=== PATIENT | female | born 1975 | race Two or more races ===

== ENCOUNTER 2017-01-05 17:22 | Observation (INO) | payer OTHER ==
[~2017-01-05] VITALS: Ht 160 cm; Wt 56.7 kg
[2017-01-05 18:12] LABS: Basophils # (auto) 0 uL; Basophils % (auto) 0.7 % (0.0-2.0); Eosinophils # (auto) 0.1 uL; Eosinophils % (auto) 1.8 % (0.0-7.0); Hematocrit 38.5 % (36.0-46.0); Hemoglobin 13.3 g/dL (12.2-16.2); Lymphocytes # (auto) 0.9 uL; Lymphocytes % (auto) 20.6 % (10.0-50.0); Mean Corpuscular Hemoglobin 35.3 pg (28.0-32.0); Mean Corpuscular Hgb Conc. 34.6 g/dL (32.0-36.0); Mean Corpuscular Volume 102.1 fL (80.0-100.0); Monocytes # (auto) 0.8 uL; Monocytes % (auto) 17.6 % (0.0-12.0); Neutrophils # (auto) 2.7 uL; Neutrophils % (auto) 59.3 % (37.0-80.0); Nucleated Red Blood Cells % 0.1 %; Platelet Count (auto) 144 10^3/uL (140-450); Red Blood Cells 3.77 10^6/uL (4.0-5.20); Red Cell Distribution Width 15.9 % (11.8-14.3); White Blood Cell 4.6 10^3/uL (4.4-10.8)
[2017-01-05 18:31] LABS: Albumin 2.7 g/dL (3.4-5.0); BUN/Creatinine Ratio 20.4; Bilirubin, Total 1.3 mg/dL (0.2-1.0); Calcium 8.7 mg/dL (8.5-10.1); Potassium 4.3 mmol/L (3.5-5.1); Total Protein 7.5 g/dL (6.4-8.2)
[2017-01-06 10:30] LABS: INR 1.11 (0.9-1.15); Partial Thromboplastin Time 34.1 sec (22.64-33.71); Prothrombin Time 12.1 sec (9.37-12.3)
[2017-01-06 12:03] LABS: Urine Bacteria FEW /hpf (None Seen); Urine Blood Negative /uL (Negative); Urine Hyaline Cast MOD /lpf (0 - 2); Urine Mucus FEW (None Seen); Urine Specific Gravity 1.022 (1.001-1.035); Urine WBC 4 /hpf (0 - 5)
[2017-01-06 14:12] VITALS: BP 111/58
== END 2017-01-06 14:20 | disposition home or self-care (01) | DRG 280 ==
LOC: ER 17:27 → OVERFLOW 17:28 → ER 01-06 14:20
PROVIDERS: ADMIT Emergency Medicine; ATTEND Emergency Medicine
DX: K70.31 Alcoholic cirrhosis of liver with ascites (principal)
CPT/HCPCS: 36415; 76700; 76942; 80053; 81001; 85025; 85610; 85730; 99285; G0378

== ENCOUNTER 2017-01-23 08:31 | Emergency (ER) | payer OTHER ==
[~2017-01-23] VITALS: Ht 160 cm; Wt 61.2 kg
[2017-01-23 09:26] LABS: Eosinophils # (auto) 0 uL; Mean Platelet Volume 9.3 fL (6.9-10.8); Monocytes # (auto) 0.4 uL; Nucleated Red Blood Cells % 0.1 %
[2017-01-23 09:29] LABS: Basophils # (auto) 0 uL; Basophils % (auto) 0.6 % (0.0-2.0); Eosinophils % (auto) 0.6 % (0.0-7.0); Hemoglobin 13.6 g/dL (12.2-16.2); Lymphocytes # (auto) 1.2 uL; Lymphocytes % (auto) 19.3 % (10.0-50.0); Mean Corpuscular Hemoglobin 35.9 pg (28.0-32.0); Mean Corpuscular Hgb Conc. 34.9 g/dL (32.0-36.0); Mean Corpuscular Volume 102.8 fL (80.0-100.0); Monocytes % (auto) 6.9 % (0.0-12.0); Neutrophils # (auto) 4.3 uL; Neutrophils % (auto) 72.6 % (37.0-80.0); Platelet Count (auto) 142 10^3/uL (140-450); Red Cell Distribution Width 15.5 % (11.8-14.3)
[2017-01-23 09:30] LABS: Albumin 2.5 g/dL (3.4-5.0); Anion Gap 8 (5-15); Aspartate Aminotransferase 31 U/L (15-37); BUN/Creatinine Ratio 22.2; Blood Urea Nitrogen 28 mg/dL (7-18); Calcium 9.2 mg/dL (8.5-10.1); Carbon Dioxide 24 mmol/L (21-32); Chloride 106 mmol/L (98-107); GFR African American 59 mL/min; GFR Non-African American 49 mL/min; Glucose 119 mg/dL (74-106); Magnesium 2.3 mg/dL (1.6-2.6); Potassium 4.4 mmol/L (3.5-5.1); Sodium 138 mmol/L (136-145)
[2017-01-23 09:35] LABS: Alkaline Phosphatase 89 U/L (45-117); Bilirubin, Total 1.5 mg/dL (0.2-1.0); Total Protein 6.8 g/dL (6.4-8.2)
[2017-01-23 10:51] LABS: INR 1.1 (0.9-1.15)
[2017-01-23] MEDS ORDERED: ONDANSETRON HCL 4 MG/2 ML VIAL IV PRN (12:15)
[2017-01-23] MEDS ORDERED: HYDROcodone-ACET 5/325MG TAB PO PRN (12:15)
[2017-01-23 12:20] LABS: Urine RBC None Seen /hpf (0 - 4)
[2017-01-23] MEDS ORDERED: RIFAXIMIN 550 MG TAB PO ONE (12:30)
[2017-01-23 12:34] LABS: Urine Bilirubin Negative (Negative); Urine Blood Negative /uL (Negative); Urine Color Yellow (Yellow); Urine Glucose Normal (Normal); Urine Ketone Negative (Negative); Urine Nitrite Negative (Negative); Urine Urobilinogen Normal (Negative)
[2017-01-23 12:44] VITALS: BP 111/66
[2017-01-23 15:31] LABS: Temperature: 22.8 C (20.0-25.0)
[2017-01-23] MEDS ORDERED: LACTULOSE 20Gm/30ML SOLN PO SCH (18:00)
[2017-01-23] MEDS ORDERED: RIFAXIMIN 550 MG TAB PO SCH (22:00)
== END 2017-01-23 14:47 | disposition home or self-care (01) ==
LOC: EDBD 08:31 → ER 08:31
DX: K70.31 Alcoholic cirrhosis of liver with ascites (principal); Z88.0 Allergy status to penicillin
CPT/HCPCS: 10030; 36415; 51702; 70450; 71010; 76700; 76942; 80053; 80074; 80320; 81001; 82140; 82607; 82746; 83605; 83735; 84484; 84702; 85025; 85610; 87040; 93005; 99285; C1729; J7030

== ENCOUNTER 2017-02-09 11:13 | Emergency (ER) | payer OTHER ==
[~2017-02-09] VITALS: Ht 160 cm; Wt 59.0 kg
[2017-02-09 11:50] LABS: Eosinophils # (auto) 0.1 uL; Monocytes # (auto) 0.4 uL; Monocytes % (auto) 7.6 % (0.0-12.0); Neutrophils # (auto) 3.5 uL; Nucleated Red Blood Cells % 0.1 %
[2017-02-09 11:52] LABS: Basophils # (auto) 0.1 uL; Eosinophils % (auto) 1.4 % (0.0-7.0); Hematocrit 41.3 % (36.0-46.0); Lymphocytes # (auto) 1.5 uL; Lymphocytes % (auto) 26.9 % (10.0-50.0); Mean Corpuscular Hemoglobin 34.5 pg (28.0-32.0); Mean Corpuscular Hgb Conc. 33.9 g/dL (32.0-36.0); Mean Corpuscular Volume 101.8 fL (80.0-100.0); Mean Platelet Volume 9.3 fL (6.9-10.8); Neutrophils % (auto) 63.1 % (37.0-80.0); Platelet Count (auto) 162 10^3/uL (140-450); Red Cell Distribution Width 16.2 % (11.8-14.3); White Blood Cell 5.5 10^3/uL (4.4-10.8)
[2017-02-09 12:13] LABS: Albumin 2.9 g/dL (3.4-5.0); Alkaline Phosphatase 91 U/L (45-117); Anion Gap 9 (5-15); Aspartate Aminotransferase 31 U/L (15-37); BUN/Creatinine Ratio 22.9; Bilirubin, Total 1.9 mg/dL (0.2-1.0); Blood Urea Nitrogen 25 mg/dL (7-18); Calcium 9.1 mg/dL (8.5-10.1); Carbon Dioxide 25 mmol/L (21-32); Chloride 102 mmol/L (98-107); GFR African American 70 mL/min; GFR Non-African American 58 mL/min; Glucose 110 mg/dL (74-106); Potassium 4.2 mmol/L (3.5-5.1); Sodium 136 mmol/L (136-145); Total Protein 7.9 g/dL (6.4-8.2)
[2017-02-09] MEDS ORDERED: PANTOPRAZOLE 40 MG/10 ML VIAL IV ONE (12:15)
[2017-02-09] MEDS ORDERED: ONDANSETRON HCL 4 MG/2 ML VIAL IV ONE (12:15)
[2017-02-09] MEDS ORDERED: MORPHINE SULF INJ 2 MG/ML SYRINGE 1ML IV ONE (12:15)
[2017-02-09] MEDS ORDERED: LACTULOSE 20Gm/30ML SOLN PO ONE (12:15)
[2017-02-09] MEDS ORDERED: SODIUM CHLORIDE 0.9% 1,000 ML IV ONE (12:15)
[2017-02-09 14:30] VITALS: BP 95/58
[2017-02-09 15:57] LABS: Urine Bilirubin Negative (Negative); Urine Blood Negative /uL (Negative); Urine Color Yellow (Yellow); Urine Glucose Normal (Normal); Urine Ketone Negative (Negative); Urine Mucus FEW (None Seen); Urine Nitrite Negative (Negative); Urine RBC <1 /hpf (0 - 4); Urine Squamous Epithelial Cell FEW /hpf (<5)
== END 2017-02-09 16:41 | disposition home or self-care (01) ==
LOC: ER 11:13
DX: R18.8 Other ascites (principal); K74.60 Unspecified cirrhosis of liver; Z88.0 Allergy status to penicillin
CPT/HCPCS: 36415; 74176; 80053; 81001; 82140; 84484; 84702; 85025; 96361; 96374; 96375; 99285; C9113; J2270; J2405; J7030

== ENCOUNTER 2017-02-16 11:27 | Emergency (ER) | payer OTHER ==
[~2017-02-16] VITALS: Ht 160 cm; Wt 56.7 kg
[2017-02-16] MEDS ORDERED: ONDANSETRON HCL 4 MG/2 ML VIAL IV ONE (12:30)
[2017-02-16] MEDS ORDERED: MORPHINE SULF INJ 2 MG/ML SYRINGE 1ML IV ONE (12:30)
[2017-02-16 12:47] VITALS: BP 100/57
[2017-02-16 12:51] LABS: Basophils # (auto) 0 uL; Basophils % (auto) 0.7 % (0.0-2.0); Eosinophils # (auto) 0.1 uL; Eosinophils % (auto) 1.4 % (0.0-7.0); Hematocrit 39.1 % (36.0-46.0); Hemoglobin 13.3 g/dL (12.2-16.2); Lymphocytes # (auto) 1.4 uL; Mean Corpuscular Hemoglobin 34.7 pg (28.0-32.0); Mean Corpuscular Volume 102.2 fL (80.0-100.0); Mean Platelet Volume 9.7 fL (6.9-10.8); Monocytes # (auto) 0.4 uL; Monocytes % (auto) 8.3 % (0.0-12.0); Neutrophils # (auto) 3.1 uL; Neutrophils % (auto) 61.6 % (37.0-80.0); Nucleated Red Blood Cells % 0.1 %; Platelet Count (auto) 135 10^3/uL (140-450); Red Cell Distribution Width 16.1 % (11.8-14.3)
[2017-02-16 13:09] LABS: Albumin 2.6 g/dL (3.4-5.0); BUN/Creatinine Ratio 20.7; Bilirubin, Total 1.3 mg/dL (0.2-1.0); Calcium 8.7 mg/dL (8.5-10.1); Potassium 4.5 mmol/L (3.5-5.1)
[2017-02-16] MEDS ORDERED: LORazepam 0.5 MG TAB PO PRN (13:45)
[2017-02-16] MEDS ORDERED: MORPHINE SULF INJ 2 MG/ML SYRINGE 1ML IV PRN ×3 (13:45)
[2017-02-16] MEDS ORDERED: PROMETHAZINE HCL 25 MG/ML 1ML IV PRN (13:45)
[2017-02-16] MEDS ORDERED: NITROGLYCERIN 0.4 MG SL TAB SL PRN (13:45)
[2017-02-16] MEDS ORDERED: SPIRONOLACTONE 25 MG TAB PO ONE (13:45)
[2017-02-16] MEDS ORDERED: TEMAZEPAM 15 MG CAP PO PRN (13:45)
[2017-02-16 14:32] LABS: INR 1.06 (0.9-1.15); Partial Thromboplastin Time 30.7 sec (22.64-33.71); Prothrombin Time 11.6 sec (9.37-12.3)
[2017-02-16 16:21] LABS: Urine Bilirubin Negative (Negative); Urine Blood Negative /uL (Negative); Urine Color Yellow (Yellow); Urine Glucose Normal (Normal); Urine Ketone Negative (Negative); Urine Mucus FEW (None Seen); Urine Nitrite Negative (Negative); Urine RBC 1 /hpf (0 - 4); Urine Squamous Epithelial Cell FEW /hpf (<5); Urine Urobilinogen Normal (Negative); Urine pH 5.5 (5.0-8.0)
[2017-02-16] MEDS ORDERED: KETOROLAC TROMETH 30 MG/ML 1ML VIAL IV ONE (16:45)
[2017-02-16] MEDS ORDERED: SPIRONOLACTONE 25 MG TAB PO SCH (18:00)
[2017-02-16] MEDS ORDERED: metroNIDAZOLE 500MG/100ML 100 ML IV SCH (18:00)
[2017-02-16] MEDS ORDERED: FUROSEMIDE 40 MG/4 ML VIAL IV SCH (22:00)
[2017-02-17] MEDS ORDERED: PANTOPRAZOLE 40 MG TAB PO SCH (10:00)
== END 2017-02-16 17:05 | disposition home or self-care (01) ==
LOC: ER 11:27
DX: R18.8 Other ascites (principal); K74.60 Unspecified cirrhosis of liver
CPT/HCPCS: 36415; 49083; 71010; 74176; 76942; 80053; 81001; 85025; 85610; 85730; 96374; 96375; 99291; C1729; J1885; J2270; J2405

== ENCOUNTER 2017-02-18 05:11 | Emergency (ER) | payer OTHER ==
[~2017-02-18] VITALS: Ht 162.6 cm; Wt 56.7 kg
[2017-02-18] MEDS ORDERED: SODIUM CHLORIDE 0.9% 1,000 ML IV ONE (07:25)
[2017-02-18] MEDS ORDERED: KETOROLAC TROMETH 30 MG/ML 1ML VIAL IV ONE (07:30)
[2017-02-18] MEDS ORDERED: METOCLOPRAMIDE HCL 5MG/ml INJ 2ml VIAL IV ONE (07:30)
[2017-02-18 08:22] LABS: Basophils # (auto) 0 uL; Eosinophils # (auto) 0 uL; Hematocrit 40.7 % (36.0-46.0); Monocytes # (auto) 0.7 uL
[2017-02-18 08:24] LABS: Basophils % (auto) 0.4 % (0.0-2.0); Lymphocytes # (auto) 0.4 uL; Lymphocytes % (auto) 4.4 % (10.0-50.0); Mean Corpuscular Hgb Conc. 34.5 g/dL (32.0-36.0); Mean Corpuscular Volume 101.6 fL (80.0-100.0); Mean Platelet Volume 9.4 fL (6.9-10.8); Monocytes % (auto) 8.1 % (0.0-12.0); Neutrophils # (auto) 7.5 uL; Neutrophils % (auto) 87.1 % (37.0-80.0); Platelet Count (auto) 146 10^3/uL (140-450); Red Cell Distribution Width 15.4 % (11.8-14.3); White Blood Cell 8.6 10^3/uL (4.4-10.8)
[2017-02-18 08:44] LABS: Albumin 2.5 g/dL (3.4-5.0); BUN/Creatinine Ratio 21.7; Calcium 8.9 mg/dL (8.5-10.1); Magnesium 2.1 mg/dL (1.6-2.6); Potassium 4.2 mmol/L (3.5-5.1)
[2017-02-18 08:46] LABS: Bilirubin, Total 1.6 mg/dL (0.2-1.0); Total Protein 7.2 g/dL (6.4-8.2)
[2017-02-18 11:30] LABS: Urine Blood Negative /uL (Negative); Urine Color Brown (Yellow); Urine Glucose Normal (Normal); Urine Hyaline Cast FEW /lpf (0 - 2); Urine Ketone TRACE (Negative); Urine Mucus FEW (None Seen); Urine Nitrite Negative (Negative); Urine RBC <1 /hpf (0 - 4); Urine Squamous Epithelial Cell FEW /hpf (<5); Urine pH 5.5 (5.0-8.0)
[2017-02-18 11:46] LABS: Urine Bilirubin Negative (Negative)
[2017-02-18 11:51] VITALS: BP 84/55
== END 2017-02-18 12:05 | disposition home or self-care (01) ==
LOC: ER 05:11 → EDBD 05:11 → ER 12:05
DX: A05.9 Bacterial foodborne intoxication, unspecified (principal); K80.50 Calculus of bile duct without cholangitis or cholecystitis without obstruction; K70.31 Alcoholic cirrhosis of liver with ascites; K80.20 Calculus of gallbladder without cholecystitis without obstruction; Z88.0 Allergy status to penicillin
CPT/HCPCS: 36415; 76705; 80053; 81001; 83690; 83735; 84443; 85025; 96361; 96374; 96375; 99285; J1885; J2765

== ENCOUNTER 2017-03-23 21:53 | Inpatient (IN) | payer OTHER ==
[~2017-03-23] VITALS: Ht 160 cm; Wt 57.8 kg
[2017-03-23 22:57] LABS: Basophils # (auto) 0 uL; Basophils % (auto) 0.5 % (0.0-2.0); Eosinophils # (auto) 0.1 uL; Eosinophils % (auto) 2.1 % (0.0-7.0); Hematocrit 40.2 % (36.0-46.0); Hemoglobin 13.5 g/dL (12.2-16.2); Lymphocytes # (auto) 1.6 uL; Lymphocytes % (auto) 24.2 % (10.0-50.0); Mean Corpuscular Hemoglobin 33.6 pg (28.0-32.0); Mean Corpuscular Hgb Conc. 33.6 g/dL (32.0-36.0); Mean Corpuscular Volume 99.8 fL (80.0-100.0); Monocytes # (auto) 0.6 uL; Monocytes % (auto) 9.9 % (0.0-12.0); Neutrophils # (auto) 4.1 uL; Neutrophils % (auto) 63.3 % (37.0-80.0); Nucleated Red Blood Cells % 0.1 %; Platelet Count (auto) 160 10^3/uL (140-450); Red Blood Cells 4.03 10^6/uL (4.0-5.20); Red Cell Distribution Width 14.9 % (11.8-14.3); White Blood Cell 6.5 10^3/uL (4.4-10.8)
[2017-03-23 23:12] LABS: BUN/Creatinine Ratio 15.4; Calcium 8.7 mg/dL (8.5-10.1); Magnesium 2.3 mg/dL (1.6-2.6)
[2017-03-23 23:15] LABS: Bilirubin, Total 1.6 mg/dL (0.2-1.0); Total Protein 7.8 g/dL (6.4-8.2)
[2017-03-24 02:50] LABS: Urine Bacteria FEW /hpf (None Seen); Urine Blood 2+ /uL (Negative); Urine Hyaline Cast MANY /lpf (0 - 2); Urine Mucus FEW (None Seen); Urine Specific Gravity 1.012 (1.001-1.035); Urine WBC 3 /hpf (0 - 5)
[2017-03-24] MEDS ORDERED: MORPHINE SULF INJ 2 MG/ML SYRINGE 1ML IV ONE (08:00)
[2017-03-24] MEDS ORDERED: ONDANSETRON HCL 4 MG/2 ML VIAL IV ONE (08:00)
[2017-03-24 09:12] LABS: INR 1.05 (0.9-1.15); Partial Thromboplastin Time 32.8 sec (22.64-33.71); Prothrombin Time 11.5 sec (9.37-12.3)
[2017-03-24] MEDS ORDERED: LEVOFLOXACIN 500MG 100 ML IV ONE (09:45)
[2017-03-24] MEDS ORDERED: NITROGLYCERIN 0.4 MG SL TAB SL PRN (10:30)
[2017-03-24] MEDS ORDERED: MORPHINE SULF INJ 2 MG/ML SYRINGE 1ML IV PRN (10:30)
[2017-03-24] MEDS ORDERED: cefTRIAXone 1GM/10ml IVPUSH 10 ML IV ONE (10:30)
[2017-03-24] MEDS ORDERED: MORPHINE SULFATE 4 MG/ML SYR/VIAL IV PRN (10:30)
[2017-03-24] MEDS ORDERED: ENOXAPARIN SOD 40 MG/0.4 ML SYRINGE SC ONE (10:45)
[2017-03-24] MEDS: metroNIDAZOLE 500MG/100ML 100 ML IV SCH ×3 (12:12→23:55)
[2017-03-24] MEDS: MORPHINE SULF INJ 2 MG/ML SYRINGE 1ML IV PRN ×2 (16:40→22:19)
[2017-03-24] MEDS: PROMETHAZINE HCL 25 MG/ML 1ML IV PRN (16:41)
[2017-03-24 17:35] VITALS: BP 104/71
[2017-03-24 22:00] VITALS: BP 106/63
[2017-03-25] MEDS: TEMAZEPAM 15 MG CAP PO PRN (00:03)
[2017-03-25] MEDS: MORPHINE SULF INJ 2 MG/ML SYRINGE 1ML IV PRN ×3 (04:07→15:12)
[2017-03-25 05:00] VITALS: BP 103/89
[2017-03-25] MEDS: metroNIDAZOLE 500MG/100ML 100 ML IV SCH ×3 (05:20→19:01)
[2017-03-25 08:00] VITALS: BP 84/47
[2017-03-25 08:04] LABS: Basophils # (auto) 0 uL; Basophils % (auto) 0.5 % (0.0-2.0); Eosinophils # (auto) 0.1 uL; Eosinophils % (auto) 1.5 % (0.0-7.0); Hematocrit 40.3 % (36.0-46.0); Hemoglobin 13.6 g/dL (12.2-16.2); Lymphocytes % (auto) 21.1 % (10.0-50.0); Mean Corpuscular Hemoglobin 33.5 pg (28.0-32.0); Mean Corpuscular Hgb Conc. 33.7 g/dL (32.0-36.0); Mean Corpuscular Volume 99.5 fL (80.0-100.0); Monocytes # (auto) 0.6 uL; Monocytes % (auto) 12.7 % (0.0-12.0); Neutrophils % (auto) 64.2 % (37.0-80.0); Nucleated Red Blood Cells % 0.2 %; Platelet Count (auto) 130 10^3/uL (140-450); Red Blood Cells 4.05 10^6/uL (4.0-5.20); Red Cell Distribution Width 15.2 % (11.8-14.3); White Blood Cell 4.7 10^3/uL (4.4-10.8)
[2017-03-25 08:40] LABS: Albumin 2.4 g/dL (3.4-5.0); BUN/Creatinine Ratio 21.9; Bilirubin, Total 1.5 mg/dL (0.2-1.0); Calcium 8.7 mg/dL (8.5-10.1); Phosphorus 3.5 mg/dL (2.5-4.90); Potassium 4.5 mmol/L (3.5-5.1); Total Protein 6.4 g/dL (6.4-8.2)
[2017-03-25 09:00] VITALS: BP 84/47
[2017-03-25 10:05] LABS: % Iron Saturation 94.1 % (15-50)
[2017-03-25] MEDS: cefTRIAXone 1GM/10ml IVPUSH 10 ML IV SCH (10:05)
[2017-03-25] MEDS: PANTOPRAZOLE 40 MG TAB PO SCH (10:05)
[2017-03-25] MEDS: ENOXAPARIN SOD 40 MG/0.4 ML SYRINGE SC SCH (10:07)
[2017-03-25 13:00] VITALS: BP 108/64
[2017-03-25 17:00] VITALS: BP 104/63
[2017-03-25] MEDS: MORPHINE SULFATE 10 MG/ML INJ 1ML SDV IV PRN (21:34)
[2017-03-25 21:48] VITALS: BP 105/61
[2017-03-26] MEDS: TEMAZEPAM 15 MG CAP PO PRN (01:10)
[2017-03-26] MEDS: metroNIDAZOLE 500MG/100ML 100 ML IV SCH ×4 (01:12→18:46)
[2017-03-26 05:00] VITALS: BP 92/45
[2017-03-26 05:33] LABS: Albumin 2.2 g/dL (3.4-5.0); BUN/Creatinine Ratio 25.4; Bilirubin, Total 1.4 mg/dL (0.2-1.0); Calcium 8.4 mg/dL (8.5-10.1); Phosphorus 3.1 mg/dL (2.5-4.90); Potassium 4.3 mmol/L (3.5-5.1)
[2017-03-26 08:00] VITALS: BP 105/58
[2017-03-26 09:00] VITALS: BP 105/58
[2017-03-26] MEDS: PANTOPRAZOLE 40 MG TAB PO SCH (10:01)
[2017-03-26] MEDS: ENOXAPARIN SOD 40 MG/0.4 ML SYRINGE SC SCH (10:01)
[2017-03-26] MEDS: cefTRIAXone 1GM/10ml IVPUSH 10 ML IV SCH (10:09)
[2017-03-26 13:00] VITALS: BP 102/59
[2017-03-26] MEDS ORDERED: MORPHINE SULFATE 10 MG/ML INJ 1ML SDV IV PRN ×2 (15:00)
[2017-03-26 17:00] VITALS: BP 103/58
[2017-03-26 22:00] VITALS: BP 100/60
[2017-03-26] MEDS: PROMETHAZINE HCL 25 MG/ML 1ML IV PRN (22:08)
[2017-03-26] MEDS: MORPHINE SULFATE 10 MG/ML INJ 1ML SDV IV PRN (22:14)
[2017-03-27] MEDS: metroNIDAZOLE 500MG/100ML 100 ML IV SCH ×3 (00:19→12:51)
[2017-03-27] MEDS: TEMAZEPAM 15 MG CAP PO PRN (00:20)
[2017-03-27] MEDS: LORazepam 0.5 MG TAB PO PRN ×2 (00:20→10:01)
[2017-03-27] MEDS: PROMETHAZINE HCL 25 MG/ML 1ML IV PRN ×2 (02:30→06:37)
[2017-03-27] MEDS: MORPHINE SULFATE 10 MG/ML INJ 1ML SDV IV PRN ×2 (02:30→06:37)
[2017-03-27 04:42] VITALS: BP 99/60
[2017-03-27 08:00] VITALS: BP 105/65
[2017-03-27 09:00] VITALS: BP 101/66
[2017-03-27] MEDS: PANTOPRAZOLE 40 MG TAB PO SCH (10:01)
[2017-03-27] MEDS: ENOXAPARIN SOD 40 MG/0.4 ML SYRINGE SC SCH (10:06)
[2017-03-27] MEDS: cefTRIAXone 1GM/10ml IVPUSH 10 ML IV SCH (10:12)
[2017-03-27 13:00] VITALS: BP 110/74
[2017-03-27 14:40] VITALS: BP 110/74
== END 2017-03-27 17:30 | disposition home or self-care (01) | DRG 279 ==
LOC: ER 21:53 → TELE 21:54 → TELE-WESTW 03-24 17:35
PROVIDERS: ADMIT Internal Medicine; ATTEND Internal Medicine Pulmonary Disease
PROC: 0W9G3ZZ Drainage of Peritoneal Cavity, Percutaneous Approach (ICD-10-PCS; principal; 2017-03-24)
DX: K72.90 Hepatic failure, unspecified without coma (principal); N17.0 Acute kidney failure with tubular necrosis; E43 Unspecified severe protein-calorie malnutrition; K76.6 Portal hypertension; N18.3 Chronic kidney disease, stage 3 (moderate); K70.31 Alcoholic cirrhosis of liver with ascites; E87.1 Hypo-osmolality and hyponatremia; D64.9 Anemia, unspecified; F41.9 Anxiety disorder, unspecified; G47.00 Insomnia, unspecified; I12.9 Hypertensive chronic kidney disease with stage 1 through stage 4 chronic kidney disease, or unspecified chronic kidney disease; N39.0 Urinary tract infection, site not specified; K80.20 Calculus of gallbladder without cholecystitis without obstruction; Z88.0 Allergy status to penicillin; Z68.22 Body mass index [BMI] 22.0-22.9, adult
CPT/HCPCS: 10030; 36415; 49083; 74176; 76705; 76775; 76942; 80053; 80061; 81001; 82140; 82150; 82550; 82570; 83540; 83550; 83690; 83735; 84100; 84156; 84300; 84443; 84550; 84702; 85025; 85610; 85730; 87081; 87086; 96365; 96375; 99291; J1956; J2405; J3490

== ENCOUNTER 2017-04-14 21:06 | Inpatient (IN) | payer OTHER ==
[~2017-04-14] VITALS: Ht 160 cm; Wt 60.4 kg
[2017-04-15] MEDS ORDERED: ONDANSETRON HCL 4 MG/2 ML VIAL IV ONE (01:00)
[2017-04-15] MEDS ORDERED: NALBUPHINE HCL 10 MG/1ml INJECTION IV ONE (01:00)
[2017-04-15 01:53] LABS: Basophils # (auto) 0 uL; Basophils % (auto) 0.6 % (0.0-2.0); Eosinophils # (auto) 0 uL; Eosinophils % (auto) 0.2 % (0.0-7.0); Hematocrit 42.2 % (36.0-46.0); Hemoglobin 14.4 g/dL (12.2-16.2); Lymphocytes # (auto) 0.8 uL; Lymphocytes % (auto) 10.4 % (10.0-50.0); Mean Corpuscular Hemoglobin 33.6 pg (28.0-32.0); Mean Corpuscular Hgb Conc. 34.1 g/dL (32.0-36.0); Mean Corpuscular Volume 98.5 fL (80.0-100.0); Monocytes # (auto) 0.3 uL; Monocytes % (auto) 4.6 % (0.0-12.0); Neutrophils # (auto) 6.4 uL; Neutrophils % (auto) 84.2 % (37.0-80.0); Nucleated Red Blood Cells % 0.1 %; Platelet Count (auto) 175 10^3/uL (140-450); Red Blood Cells 4.28 10^6/uL (4.0-5.20); Red Cell Distribution Width 15.5 % (11.8-14.3); White Blood Cell 7.5 10^3/uL (4.4-10.8)
[2017-04-15 01:58] LABS: INR 1.05 (0.9-1.15); Partial Thromboplastin Time 29.2 sec (22.64-33.71); Prothrombin Time 11.4 sec (9.37-12.3)
[2017-04-15 02:00] LABS: Albumin 3.4 g/dL (3.4-5.0); BUN/Creatinine Ratio 18.7; Calcium 9.5 mg/dL (8.5-10.1); Potassium 3.4 mmol/L (3.5-5.1)
[2017-04-15 02:03] LABS: Bilirubin, Total 1.2 mg/dL (0.2-1.0); Total Protein 8.8 g/dL (6.4-8.2)
[2017-04-15] MEDS ORDERED: MORPHINE SULFATE 4 MG/ML SYR/VIAL IV ONE (02:45)
[2017-04-15] MEDS ORDERED: HYDROmorphone HCL 2 MG/ML VL IV ONE (03:45)
[2017-04-15] MEDS ORDERED: POTASSIUM CHL 20 Meq TABLET PO ONE (06:45)
[2017-04-15] MEDS ORDERED: ACETAMINOPHEN 325 MG TAB PO PRN (06:45)
[2017-04-15] MEDS ORDERED: LEVOFLOXACIN 500MG 100 ML IV SCH (08:00)
[2017-04-15] MEDS: NALBUPHINE HCL 10 MG/1ml INJECTION IV PRN ×2 (08:30→16:00)
[2017-04-15] MEDS: ONDANSETRON HCL 4 MG/2 ML VIAL IV PRN ×2 (08:42→13:55)
[2017-04-15] MEDS: POTASSIUM CHL 10 Meq TABLET PO SCH (09:59)
[2017-04-15] MEDS: PANTOPRAZOLE 40 MG TAB PO SCH (10:00)
[2017-04-15] MEDS: SPIRONOLACTONE 25 MG TAB PO SCH (10:00)
[2017-04-15] MEDS: FUROSEMIDE 20 MG TAB PO SCH ×2 (10:12→17:55)
[2017-04-15] MEDS ORDERED: LEVOFLOXACIN 500MG 100 ML IV ONE (11:30)
[2017-04-15] MEDS ORDERED: HYDROmorphone HCL 2 MG/ML VL IV PRN (11:30)
[2017-04-15] MEDS ORDERED: DEXTROSE (50%) 50ML SYRG IV PRN (11:45)
[2017-04-15] MEDS: HYDROmorphone HCL 2 MG TAB PO PRN ×2 (11:50→17:55)
[2017-04-15] MEDS: metroNIDAZOLE 500MG/100ML 100 ML IV SCH ×2 (11:51→20:42)
[2017-04-15 13:00] VITALS: BP 115/60
[2017-04-15 13:17] LABS: Lactic Acid w/Reflex 2.3 mmol/L (0.4-2.0)
[2017-04-15] MEDS: MORPHINE SULFATE 4 MG/ML SYR/VIAL IV PRN ×2 (13:46→20:42)
[2017-04-15] MEDS: InsuLIN REG 1unit/0.01ml Soln (100units/ml) SC SCH ×2 (17:00→21:25)
[2017-04-15 17:10] VITALS: BP 117/59
[2017-04-15] MEDS: ACCU-CHEK COMFORT CURVE STRIP VI SCH ×2 (17:37→21:25)
[2017-04-15 22:00] VITALS: BP 120/70
[2017-04-15 22:11] LABS: Urine Bacteria NONE SEEN /hpf (None Seen); Urine Blood Negative /uL (Negative); Urine Mucus FEW (None Seen); Urine WBC 1 /hpf (0 - 5)
[2017-04-16] MEDS: NALBUPHINE HCL 10 MG/1ml INJECTION IV PRN ×2 (00:01→13:26)
[2017-04-16] MEDS: HYDROmorphone HCL 2 MG TAB PO PRN ×2 (01:59→11:28)
[2017-04-16] MEDS: metroNIDAZOLE 500MG/100ML 100 ML IV SCH ×3 (03:46→22:06)
[2017-04-16] MEDS: MORPHINE SULFATE 4 MG/ML SYR/VIAL IV PRN ×3 (03:57→17:30)
[2017-04-16 05:00] VITALS: BP 112/53
[2017-04-16] MEDS: FUROSEMIDE 20 MG TAB PO SCH ×2 (06:49→17:36)
[2017-04-16] MEDS: ACCU-CHEK COMFORT CURVE STRIP VI SCH ×4 (06:50→22:07)
[2017-04-16] MEDS: InsuLIN REG 1unit/0.01ml Soln (100units/ml) SC SCH ×4 (06:57→22:00)
[2017-04-16 07:07] LABS: Basophils # (auto) 0 uL; Eosinophils # (auto) 0 uL; Hemoglobin 13.9 g/dL (12.2-16.2); Lymphocytes # (auto) 0.6 uL; Nucleated Red Blood Cells % 0.1 %
[2017-04-16 07:09] LABS: Basophils % (auto) 0.2 % (0.0-2.0); Hematocrit 40.4 % (36.0-46.0); Lymphocytes % (auto) 5.2 % (10.0-50.0); Mean Corpuscular Hemoglobin 33.8 pg (28.0-32.0); Mean Corpuscular Hgb Conc. 34.4 g/dL (32.0-36.0); Mean Corpuscular Volume 98.3 fL (80.0-100.0); Monocytes # (auto) 0.8 uL; Monocytes % (auto) 6.4 % (0.0-12.0); Neutrophils # (auto) 10.4 uL; Neutrophils % (auto) 88.2 % (37.0-80.0); Platelet Count (auto) 150 10^3/uL (140-450); Red Blood Cells 4.11 10^6/uL (4.0-5.20); Red Cell Distribution Width 15.8 % (11.8-14.3); White Blood Cell 11.8 10^3/uL (4.4-10.8)
[2017-04-16 07:10] LABS: Albumin 2.5 g/dL (3.4-5.0); Bilirubin, Total 1.5 mg/dL (0.2-1.0); Calcium 8.5 mg/dL (8.5-10.1); Potassium 4.1 mmol/L (3.5-5.1); Total Protein 6.9 g/dL (6.4-8.2)
[2017-04-16 08:00] VITALS: BP 96/59
[2017-04-16] MEDS: LEVOFLOXACIN 500MG 100 ML IV SCH (08:30)
[2017-04-16] MEDS: SPIRONOLACTONE 25 MG TAB PO SCH (09:52)
[2017-04-16] MEDS: PANTOPRAZOLE 40 MG TAB PO SCH (09:52)
[2017-04-16] MEDS: POTASSIUM CHL 10 Meq TABLET PO SCH (09:52)
[2017-04-16 12:00] VITALS: BP 101/55
[2017-04-16] MEDS ORDERED: VANCOMYCIN PER PHARMACY 0 MG IV SCH (12:15)
[2017-04-16] MEDS: VANCOMYCIN 750 MG in D5W 5% 250 ML IV SCH (13:56)
[2017-04-16 17:07] VITALS: BP 94/55
[2017-04-16 22:00] VITALS: BP 95/54
[2017-04-17] MEDS: MORPHINE SULFATE 4 MG/ML SYR/VIAL IV PRN (01:00)
[2017-04-17] MEDS: VANCOMYCIN 750 MG in D5W 5% 250 ML IV SCH (02:24)
[2017-04-17] MEDS: metroNIDAZOLE 500MG/100ML 100 ML IV SCH ×2 (04:57→12:00)
[2017-04-17 05:00] VITALS: BP 94/54
[2017-04-17] MEDS: FUROSEMIDE 20 MG TAB PO SCH ×2 (06:00→18:00)
[2017-04-17] MEDS: InsuLIN REG 1unit/0.01ml Soln (100units/ml) SC SCH ×2 (06:52→11:30)
[2017-04-17 06:54] LABS: Eosinophils # (auto) 0.1 uL; Nucleated Red Blood Cells % 0.1 %; Platelet Count (auto) 126 10^3/uL (140-450); White Blood Cell 9.3 10^3/uL (4.4-10.8)
[2017-04-17 06:56] LABS: Basophils # (auto) 0.2 uL; Basophils % (auto) 2.7 % (0.0-2.0); Eosinophils % (auto) 0.6 % (0.0-7.0); Hematocrit 36.2 % (36.0-46.0); Hemoglobin 12.6 g/dL (12.2-16.2); Lymphocytes # (auto) 0.7 uL; Lymphocytes % (auto) 7.8 % (10.0-50.0); Mean Corpuscular Hemoglobin 34.4 pg (28.0-32.0); Mean Corpuscular Hgb Conc. 34.8 g/dL (32.0-36.0); Mean Corpuscular Volume 98.7 fL (80.0-100.0); Monocytes % (auto) 10.8 % (0.0-12.0); Neutrophils # (auto) 7.3 uL; Neutrophils % (auto) 78.1 % (37.0-80.0); Red Blood Cells 3.67 10^6/uL (4.0-5.20); Red Cell Distribution Width 15.7 % (11.8-14.3)
[2017-04-17] MEDS: ACCU-CHEK COMFORT CURVE STRIP VI SCH ×2 (07:00→12:32)
[2017-04-17 07:08] LABS: Albumin 2.1 g/dL (3.4-5.0)
[2017-04-17 07:10] LABS: Calcium 8.4 mg/dL (8.5-10.1)
[2017-04-17 07:24] LABS: Bilirubin, Total 1.9 mg/dL (0.2-1.0)
[2017-04-17 09:00] VITALS: BP 99/51
[2017-04-17] MEDS ORDERED: LIDOCAINE 2%HCL (LOCAL ANESTH.) INJ 20ML MDV ONE (09:42)
[2017-04-17] MEDS: SPIRONOLACTONE 25 MG TAB PO SCH (10:00)
[2017-04-17] MEDS: LEVOFLOXACIN 500MG 100 ML IV SCH (11:04)
[2017-04-17] MEDS: POTASSIUM CHL 10 Meq TABLET PO SCH (12:32)
[2017-04-17] MEDS: PANTOPRAZOLE 40 MG TAB PO SCH (12:32)
[2017-04-17 13:00] VITALS: BP 96/50
[2017-04-17] MEDS: HYDROcodone-ACET 5/325MG TAB PO PRN ×2 (13:16→20:23)
[2017-04-17] MEDS: ALBUMIN 25% 100 ML IV SCH ×4 (14:00→18:30)
[2017-04-17] MEDS: LACTULOSE 20Gm/30ML SOLN PO SCH (16:32)
[2017-04-17 17:00] VITALS: BP 99/49
[2017-04-17] MEDS ORDERED: VANCOMYCIN 750 MG in D5W 5% 250 ML IV SCH (18:00)
[2017-04-17 22:00] VITALS: BP 94/49
[2017-04-18] MEDS: TEMAZEPAM 15 MG CAP PO PRN (01:13)
[2017-04-18] MEDS: HYDROcodone-ACET 5/325MG TAB PO PRN ×2 (04:21→10:41)
[2017-04-18 05:00] VITALS: BP 96/58
[2017-04-18] MEDS: FUROSEMIDE 20 MG TAB PO SCH ×2 (06:00→17:47)
[2017-04-18 09:00] VITALS: BP 89/46
[2017-04-18] MEDS: VANCOMYCIN 750 MG in D5W 5% 250 ML IV SCH ×2 (09:30→20:57)
[2017-04-18] MEDS: SPIRONOLACTONE 25 MG TAB PO SCH (09:38)
[2017-04-18] MEDS: PANTOPRAZOLE 40 MG TAB PO SCH (09:38)
[2017-04-18] MEDS: LEVOFLOXACIN 500 MG TAB PO SCH (09:38)
[2017-04-18] MEDS: LACTULOSE 20Gm/30ML SOLN PO SCH (09:38)
[2017-04-18 10:00] LABS: Basophils # (auto) 0 uL; Basophils % (auto) 0.2 % (0.0-2.0); Eosinophils # (auto) 0 uL; Eosinophils % (auto) 0.5 % (0.0-7.0); Hemoglobin 11.8 g/dL (12.2-16.2); Lymphocytes % (auto) 11.1 % (10.0-50.0); Mean Corpuscular Hemoglobin 33.1 pg (28.0-32.0); Mean Corpuscular Hgb Conc. 33.6 g/dL (32.0-36.0); Mean Corpuscular Volume 98.6 fL (80.0-100.0); Monocytes # (auto) 1.3 uL; Monocytes % (auto) 14.6 % (0.0-12.0); Neutrophils # (auto) 6.6 uL; Neutrophils % (auto) 73.6 % (37.0-80.0); Nucleated Red Blood Cells % 0.1 %; Platelet Count (auto) 126 10^3/uL (140-450); Red Blood Cells 3.55 10^6/uL (4.0-5.20); Red Cell Distribution Width 15.4 % (11.8-14.3); White Blood Cell 8.9 10^3/uL (4.4-10.8)
[2017-04-18 10:23] LABS: Albumin 2.5 g/dL (3.4-5.0); BUN/Creatinine Ratio 25.6; Bilirubin, Total 2.6 mg/dL (0.2-1.0); Potassium 3.8 mmol/L (3.5-5.1); Total Protein 6.1 g/dL (6.4-8.2)
[2017-04-18 13:00] VITALS: BP 92/55
[2017-04-18] MEDS: MORPHINE SULFATE 4 MG/ML SYR/VIAL IV PRN ×3 (13:08→22:47)
[2017-04-18 17:19] VITALS: BP 96/59
[2017-04-18 21:30] VITALS: BP 100/64
[2017-04-18 22:00] VITALS: BP 101/63
[2017-04-19] MEDS: TEMAZEPAM 15 MG CAP PO PRN ×2 (00:11→21:06)
[2017-04-19] MEDS: MORPHINE SULFATE 4 MG/ML SYR/VIAL IV PRN ×2 (03:30→21:07)
[2017-04-19 05:00] VITALS: BP 100/56
[2017-04-19 05:55] LABS: Basophils # (auto) 0 uL; Basophils % (auto) 0.3 % (0.0-2.0); Eosinophils # (auto) 0 uL; Eosinophils % (auto) 0.4 % (0.0-7.0); Hematocrit 36.8 % (36.0-46.0); Hemoglobin 12.5 g/dL (12.2-16.2); Lymphocytes # (auto) 1.3 uL; Lymphocytes % (auto) 13.7 % (10.0-50.0); Mean Corpuscular Hemoglobin 33.6 pg (28.0-32.0); Mean Corpuscular Volume 98.6 fL (80.0-100.0); Monocytes # (auto) 1.5 uL; Monocytes % (auto) 15.8 % (0.0-12.0); Neutrophils # (auto) 6.6 uL; Neutrophils % (auto) 69.8 % (37.0-80.0); Platelet Count (auto) 171 10^3/uL (140-450); Red Blood Cells 3.73 10^6/uL (4.0-5.20); Red Cell Distribution Width 15.6 % (11.8-14.3); White Blood Cell 9.4 10^3/uL (4.4-10.8)
[2017-04-19 06:30] LABS: Calcium 7.8 mg/dL (8.5-10.1); Potassium 3.9 mmol/L (3.5-5.1)
[2017-04-19] MEDS: FUROSEMIDE 20 MG TAB PO SCH ×2 (06:56→17:44)
[2017-04-19 08:00] VITALS: BP 100/56
[2017-04-19 09:00] VITALS: BP 103/55
[2017-04-19] MEDS: LACTULOSE 20Gm/30ML SOLN PO SCH (09:52)
[2017-04-19] MEDS: VANCOMYCIN 750 MG in D5W 5% 250 ML IV SCH (09:52)
[2017-04-19] MEDS: SPIRONOLACTONE 25 MG TAB PO SCH (09:53)
[2017-04-19] MEDS: LEVOFLOXACIN 500 MG TAB PO SCH (09:53)
[2017-04-19] MEDS: PANTOPRAZOLE 40 MG TAB PO SCH (09:53)
[2017-04-19] MEDS: HYDROcodone-ACET 5/325MG TAB PO PRN ×2 (09:57→16:50)
[2017-04-19 13:00] VITALS: BP 91/56
[2017-04-19 17:20] VITALS: BP 103/58
[2017-04-20] MEDS: HYDROcodone-ACET 5/325MG TAB PO PRN ×3 (02:31→22:45)
[2017-04-20 05:00] VITALS: BP 102/63
[2017-04-20] MEDS: FUROSEMIDE 20 MG TAB PO SCH (05:09)
[2017-04-20] MEDS: MORPHINE SULFATE 4 MG/ML SYR/VIAL IV PRN ×3 (05:10→20:28)
[2017-04-20 05:47] LABS: Hematocrit 36.7 % (36.0-46.0); Hemoglobin 12.7 g/dL (12.2-16.2); Mean Corpuscular Hemoglobin 33.9 pg (28.0-32.0); Mean Corpuscular Hgb Conc. 34.5 g/dL (32.0-36.0); Mean Corpuscular Volume 98.1 fL (80.0-100.0); Platelet Count (auto) 181 10^3/uL (140-450); Red Blood Cells 3.74 10^6/uL (4.0-5.20); Red Cell Distribution Width 15.3 % (11.8-14.3); White Blood Cell 9.3 10^3/uL (4.4-10.8)
[2017-04-20 06:09] LABS: Basophils % (manual) 0 (0.0-2.0); Blast Cells 0; Eosinophils % (manual) 0 (0-7); Metamyelocytes % 0; Myelocytes % 0; Promyelocytes % 0; Reactive Lymphocytes 0
[2017-04-20 06:13] LABS: Albumin 2.2 g/dL (3.4-5.0); Potassium 3.8 mmol/L (3.5-5.1)
[2017-04-20 06:14] LABS: BUN/Creatinine Ratio 21.7
[2017-04-20 06:29] LABS: Bilirubin, Total 1.6 mg/dL (0.2-1.0); Total Protein 5.8 g/dL (6.4-8.2)
[2017-04-20 06:58] LABS: Band Neutrophils % (manual) 7; Lymphocytes % (manual) 8 (10.0-50.0); Monocytes % (manual) 21 (0-12)
[2017-04-20 08:00] VITALS: BP 90/50
[2017-04-20 08:38] VITALS: BP 100/58
[2017-04-20] MEDS: SPIRONOLACTONE 25 MG TAB PO SCH (09:44)
[2017-04-20] MEDS: LEVOFLOXACIN 500 MG TAB PO SCH (09:45)
[2017-04-20] MEDS: PANTOPRAZOLE 40 MG TAB PO SCH (09:45)
[2017-04-20] MEDS: LACTULOSE 20Gm/30ML SOLN PO SCH (10:00)
[2017-04-20 12:48] VITALS: BP 103/55
[2017-04-20 16:52] VITALS: BP 105/57
[2017-04-20 22:24] VITALS: BP 95/54
[2017-04-20] MEDS: TEMAZEPAM 15 MG CAP PO PRN (22:42)
[2017-04-21] MEDS: HYDROcodone-ACET 5/325MG TAB PO PRN (04:50)
[2017-04-21 05:19] LABS: Hematocrit 36.2 % (36.0-46.0); Hemoglobin 12.3 g/dL (12.2-16.2); Mean Corpuscular Hemoglobin 33.2 pg (28.0-32.0); Mean Corpuscular Volume 97.6 fL (80.0-100.0); Platelet Count (auto) 191 10^3/uL (140-450); Red Cell Distribution Width 15.2 % (11.8-14.3); White Blood Cell 10.8 10^3/uL (4.4-10.8)
[2017-04-21 05:41] LABS: BUN/Creatinine Ratio 22.3; Calcium 8.2 mg/dL (8.5-10.1)
[2017-04-21 05:43] VITALS: BP 93/50
[2017-04-21 06:30] LABS: Basophils % (manual) 0 (0.0-2.0); Blast Cells 0; Eosinophils % (manual) 0 (0-7); Metamyelocytes % 0; Myelocytes % 0; Promyelocytes % 0; Reactive Lymphocytes 0
[2017-04-21 08:00] VITALS: BP 91/54
[2017-04-21] MEDS ORDERED: SODIUM CHLORIDE 0.9% 1,000 ML IV ONE (08:00)
[2017-04-21] MEDS: MORPHINE SULFATE 4 MG/ML SYR/VIAL IV PRN ×3 (08:19→21:43)
[2017-04-21 08:29] LABS: Band Neutrophils % (manual) 2; Lymphocytes % (manual) 15 (10.0-50.0); Monocytes % (manual) 16 (0-12)
[2017-04-21 09:18] VITALS: BP 91/54
[2017-04-21] MEDS: LEVOFLOXACIN 500 MG TAB PO SCH (09:30)
[2017-04-21] MEDS: PANTOPRAZOLE 40 MG TAB PO SCH (09:30)
[2017-04-21] MEDS: LACTULOSE 20Gm/30ML SOLN PO SCH (09:30)
[2017-04-21] MEDS ORDERED: SPIRONOLACTONE 25 MG TAB PO SCH (10:00)
[2017-04-21] MEDS: ONDANSETRON HCL 4 MG/2 ML VIAL IV PRN (10:52)
[2017-04-21 12:23] VITALS: BP 96/52
[2017-04-21 16:54] VITALS: BP 98/53
[2017-04-21] MEDS ORDERED: ONDA4SOL2 PO (18:49)
[2017-04-21] MEDS ORDERED: SPIR100T21 PO (18:49)
[2017-04-21] MEDS ORDERED: FERR-20 PO (18:49)
[2017-04-21] MEDS ORDERED: FAMO-12 PO (18:49)
[2017-04-21 21:51] VITALS: BP 107/57
[2017-04-22] MEDS: TEMAZEPAM 15 MG CAP PO PRN (01:04)
[2017-04-22] MEDS: HYDROcodone-ACET 5/325MG TAB PO PRN ×3 (01:05→13:30)
[2017-04-22 05:00] VITALS: BP 95/57
[2017-04-22 06:09] LABS: BUN/Creatinine Ratio 19.4; Calcium 7.8 mg/dL (8.5-10.1); Potassium 4.3 mmol/L (3.5-5.1)
[2017-04-22 09:00] VITALS: BP 90/48
[2017-04-22] MEDS: LACTULOSE 20Gm/30ML SOLN PO SCH (10:00)
[2017-04-22] MEDS: LEVOFLOXACIN 500 MG TAB PO SCH (10:09)
[2017-04-22] MEDS: PANTOPRAZOLE 40 MG TAB PO SCH (10:09)
[2017-04-22 13:00] VITALS: BP 89/51
[2017-04-22 17:00] VITALS: BP 89/50
[2017-04-22] MEDS: MORPHINE SULFATE 4 MG/ML SYR/VIAL IV PRN (21:58)
[2017-04-22 22:00] VITALS: BP 109/59
[2017-04-23] MEDS: ZOLPIDEM TARTRATE 5 MG TAB PO PRN ×2 (01:39→23:45)
[2017-04-23] MEDS: HYDROcodone-ACET 5/325MG TAB PO PRN ×4 (01:40→23:47)
[2017-04-23 05:00] VITALS: BP 88/54
[2017-04-23 09:00] VITALS: BP 97/48
[2017-04-23] MEDS: PANTOPRAZOLE 40 MG TAB PO SCH (09:20)
[2017-04-23] MEDS: LEVOFLOXACIN 500 MG TAB PO SCH (09:20)
[2017-04-23] MEDS: LACTULOSE 20Gm/30ML SOLN PO SCH (09:21)
[2017-04-23 13:24] VITALS: BP 98/52
[2017-04-23 17:17] VITALS: BP_SYST 120; BP_SYST 87; BP_DIAS 44; BP_DIAS 77
[2017-04-23 22:00] VITALS: BP 90/48
[2017-04-24 05:00] VITALS: BP 86/45
[2017-04-24] MEDS: HYDROcodone-ACET 5/325MG TAB PO PRN ×2 (05:21→14:18)
[2017-04-24 09:00] VITALS: BP 93/55
[2017-04-24] MEDS: LACTULOSE 20Gm/30ML SOLN PO SCH (09:16)
[2017-04-24] MEDS: PANTOPRAZOLE 40 MG TAB PO SCH (09:17)
[2017-04-24] MEDS: LEVOFLOXACIN 500 MG TAB PO SCH (09:17)
[2017-04-24 13:00] VITALS: BP 95/47
[2017-04-24] MEDS: FUROSEMIDE 40 MG TAB PO SCH (16:47)
[2017-04-24 17:00] VITALS: BP 112/65
[2017-04-24] MEDS ORDERED: LORazepam 0.5 MG TAB PO PRN (17:00)
[2017-04-24 22:00] VITALS: BP 103/51
[2017-04-25] VITALS (7 sets, daily range): BP systolic 90–112; BP diastolic 50–65
[2017-04-25] MEDS: HYDROcodone-ACET 5/325MG TAB PO PRN ×2 (00:17→08:12)
[2017-04-25] MEDS: ZOLPIDEM TARTRATE 5 MG TAB PO PRN (00:17)
[2017-04-25] MEDS ORDERED: FURO40TA4 PO (09:09)
[2017-04-25] MEDS ORDERED: LACT10SO3 PO (09:09)
[2017-04-25] MEDS: LEVOFLOXACIN 500 MG TAB PO SCH (09:13)
[2017-04-25] MEDS: PANTOPRAZOLE 40 MG TAB PO SCH (09:13)
[2017-04-25] MEDS: LACTULOSE 20Gm/30ML SOLN PO SCH (09:13)
[2017-04-25] MEDS: FUROSEMIDE 40 MG TAB PO SCH (09:13)
[2017-04-25] MEDS ORDERED: HYDROcodone-ACET 5/325MG TAB PO PRN (09:15)
[2017-04-25] MEDS ORDERED: MORPHINE SULFATE 4 MG/ML SYR/VIAL IV PRN (09:15)
[2017-04-25 09:50] LABS: Basophils # (auto) 0.1 uL; Basophils % (auto) 0.5 % (0.0-2.0); Eosinophils # (auto) 0.1 uL; Eosinophils % (auto) 1.2 % (0.0-7.0); Hematocrit 33.9 % (36.0-46.0); Hemoglobin 11.4 g/dL (12.2-16.2); Lymphocytes # (auto) 1.3 uL; Lymphocytes % (auto) 11.4 % (10.0-50.0); Mean Corpuscular Hemoglobin 32.5 pg (28.0-32.0); Mean Corpuscular Hgb Conc. 33.5 g/dL (32.0-36.0); Mean Corpuscular Volume 96.9 fL (80.0-100.0); Monocytes # (auto) 1.9 uL; Monocytes % (auto) 16.3 % (0.0-12.0); Neutrophils % (auto) 70.6 % (37.0-80.0); Platelet Count (auto) 305 10^3/uL (140-450); Red Blood Cells 3.49 10^6/uL (4.0-5.20); Red Cell Distribution Width 15.4 % (11.8-14.3); White Blood Cell 11.4 10^3/uL (4.4-10.8)
[2017-04-25] MEDS ORDERED: SPIRONOLACTONE 25 MG TAB PO SCH (10:00)
[2017-04-25 10:10] LABS: INR 1.14 (0.9-1.15); Partial Thromboplastin Time 35.2 sec (22.64-33.71); Prothrombin Time 12.4 sec (9.37-12.3)
[2017-04-25 10:12] LABS: Albumin 1.8 g/dL (3.4-5.0); BUN/Creatinine Ratio 26.6; Bilirubin, Total 1.1 mg/dL (0.2-1.0); Calcium 7.8 mg/dL (8.5-10.1); Potassium 4.3 mmol/L (3.5-5.1); Total Protein 5.9 g/dL (6.4-8.2)
[2017-04-25] MEDS: ALBUMIN 25% 100 ML IV SCH ×2 (15:26→16:30)
[2017-04-25] MEDS ORDERED: ALBUMIN 25% 100 ML IV SCH (17:00)
== END 2017-04-25 18:44 | disposition home or self-care (01) | DRG 720 ==
LOC: ER 21:08 → OVERFLOW 21:09 → WEST WING 04-15 08:15
PROVIDERS: ADMIT Nurse Practitioner; ATTEND Internal Medicine
PROC: 0W9G3ZZ Drainage of Peritoneal Cavity, Percutaneous Approach (ICD-10-PCS; principal; 2017-04-17)
PROC: 0W9G3ZZ Drainage of Peritoneal Cavity, Percutaneous Approach (ICD-10-PCS; 2017-04-25)
DX: A41.81 Sepsis due to Enterococcus (principal); K82.1 Hydrops of gallbladder; K80.12 Calculus of gallbladder with acute and chronic cholecystitis without obstruction; E11.21 Type 2 diabetes mellitus with diabetic nephropathy; K76.6 Portal hypertension; E11.22 Type 2 diabetes mellitus with diabetic chronic kidney disease; I12.9 Hypertensive chronic kidney disease with stage 1 through stage 4 chronic kidney disease, or unspecified chronic kidney disease; E87.6 Hypokalemia; K70.31 Alcoholic cirrhosis of liver with ascites; Z80.6 Family history of leukemia; Z88.0 Allergy status to penicillin; I86.4 Gastric varices
CPT/HCPCS: 10022; 36415; 49083; 74176; 76700; 76705; 76942; 78226; 80048; 80053; 80202; 81001; 82140; 82150; 82962; 83036; 83605; 83690; 84443; 85007; 85025; 85027; 85610; 85730; 87040; 87077; 87081; 87186; 93005; 96365; 96375; J1956; J2405; J3490; J7060

== ENCOUNTER 2017-06-02 04:08 | Emergency (ER) | payer OTHER ==
[~2017-06-02] VITALS: Ht 160 cm; Wt 55.3 kg
[~2017-06-02 04:08] MED LIST: FAMO-12 PO; FERR-20 PO; FURO40TA4 PO; LACT10SO3 PO; ONDA4SOL2 PO; SPIR100T21 PO
[2017-06-02 08:01] LABS: Basophils # (auto) 0 uL; Basophils % (auto) 0.8 % (0.0-2.0); Eosinophils # (auto) 0.1 uL; Eosinophils % (auto) 2.4 % (0.0-7.0); Hematocrit 39.3 % (36.0-46.0); Hemoglobin 13.4 g/dL (12.2-16.2); Lymphocytes # (auto) 1.5 uL; Mean Corpuscular Hemoglobin 33.7 pg (28.0-32.0); Mean Corpuscular Hgb Conc. 34.1 g/dL (32.0-36.0); Monocytes # (auto) 0.5 uL; Monocytes % (auto) 8.7 % (0.0-12.0); Neutrophils # (auto) 3.8 uL; Neutrophils % (auto) 63.1 % (37.0-80.0); Platelet Count (auto) 145 10^3/uL (140-450); Red Blood Cells 3.97 10^6/uL (4.0-5.20); Red Cell Distribution Width 15.7 % (11.8-14.3)
[2017-06-02 08:16] LABS: INR 1.05 (0.9-1.15); Partial Thromboplastin Time 30.7 sec (22.64-33.71); Prothrombin Time 11.5 sec (9.37-12.3)
[2017-06-02 08:20] LABS: Albumin 2.9 g/dL (3.4-5.0); BUN/Creatinine Ratio 36.6; Bilirubin, Total 0.9 mg/dL (0.2-1.0); Potassium 4.7 mmol/L (3.5-5.1); Total Protein 7.5 g/dL (6.4-8.2)
[2017-06-02 09:18] LABS: Urine Bacteria FEW /hpf (None Seen); Urine Blood Negative /uL (Negative); Urine Hyaline Cast FEW /lpf (0 - 2); Urine Mucus FEW (None Seen); Urine Specific Gravity 1.012 (1.001-1.035); Urine WBC 3 /hpf (0 - 5)
[2017-06-02] MEDS ORDERED: LIDOCAINE 1% HCL (LOCAL ANESTH.) INJ 20ML MDV IJ ONE (09:30)
[2017-06-02 11:05] VITALS: BP 103/73
[2017-06-02] MEDS ORDERED: HYDROcodone-ACET 5/325MG TAB PO ONE (12:30)
== END 2017-06-02 13:01 | disposition home or self-care (01) ==
LOC: ER 04:08
DX: R14.0 Abdominal distension (gaseous) (principal); R18.8 Other ascites; Z88.0 Allergy status to penicillin
CPT/HCPCS: 36415; 49083; 76942; 80053; 81001; 85025; 85610; 85730; 87205

== ENCOUNTER 2017-06-29 11:44 | Inpatient (IN) | payer OTHER ==
[~2017-06-29] VITALS: Ht 152.4 cm; Wt 57.0 kg
[2017-06-29] MEDS ORDERED: MORPHINE SULFATE 8mg/ml INJ SDV IV ONE (12:30)
[2017-06-29] MEDS ORDERED: ONDANSETRON HCL 4 MG/2 ML VIAL IV ONE (12:30)
[2017-06-29 13:44] LABS: Basophils # (auto) 0 uL; Basophils % (auto) 0.8 % (0.0-2.0); Eosinophils # (auto) 0.1 uL; Eosinophils % (auto) 1.6 % (0.0-7.0); Hematocrit 43.2 % (36.0-46.0); Hemoglobin 14.8 g/dL (12.2-16.2); Lymphocytes # (auto) 1.9 uL; Lymphocytes % (auto) 32.7 % (10.0-50.0); Mean Corpuscular Hemoglobin 33.4 pg (28.0-32.0); Mean Corpuscular Hgb Conc. 34.3 g/dL (32.0-36.0); Mean Corpuscular Volume 97.3 fL (80.0-100.0); Monocytes # (auto) 0.5 uL; Monocytes % (auto) 8.1 % (0.0-12.0); Neutrophils # (auto) 3.3 uL; Neutrophils % (auto) 56.8 % (37.0-80.0); Platelet Count (auto) 179 10^3/uL (140-450); Red Blood Cells 4.44 10^6/uL (4.0-5.20); Red Cell Distribution Width 15.1 % (11.8-14.3); White Blood Cell 5.9 10^3/uL (4.4-10.8)
[2017-06-29 13:48] LABS: Albumin 3.3 g/dL (3.4-5.0); BUN/Creatinine Ratio 29.2; Bilirubin, Total 0.9 mg/dL (0.2-1.0); Calcium 9.4 mg/dL (8.5-10.1); Total Protein 8.7 g/dL (6.4-8.2)
[2017-06-29 13:51] LABS: INR 1.02 (0.9-1.15); Partial Thromboplastin Time 30.9 sec (22.64-33.71); Prothrombin Time 11.1 sec (9.37-12.3)
[2017-06-29] MEDS ORDERED: LIDOCAINE 1% (LOCAL ANESTH.) PF 5ml SDV ONE (14:56)
[2017-06-29] MEDS ORDERED: LIDOCAINE 1% (LOCAL ANESTH.) PF 5ml SDV IJ ONE (15:30)
[2017-06-29] MEDS ORDERED: ONDANSETRON HCL 4 MG/2 ML VIAL IV PRN (16:30)
[2017-06-29] MEDS ORDERED: cefTRIAXone 1GM/10ml IVPUSH 10 ML IV ONE (16:30)
[2017-06-29] MEDS ORDERED: SPIRONOLACTONE 25 MG TAB PO ONE (16:30)
[2017-06-29] MEDS ORDERED: traMADol HCL 50 MG TAB PO PRN (16:30)
[2017-06-29] MEDS ORDERED: FUROSEMIDE 40 MG TAB PO ONE (16:30)
[2017-06-29 20:00] VITALS: BP 115/86
[2017-06-29] MEDS: metroNIDAZOLE 500MG/100ML 100 ML IV SCH (21:21)
[2017-06-29] MEDS: FAMOTIDINE 20 MG TAB PO SCH (21:24)
[2017-06-29 22:00] VITALS: BP 115/86
[2017-06-29] MEDS: LACTULOSE 20Gm/30ML SOLN PO SCH (22:00)
[2017-06-29] MEDS: MORPHINE SULFATE 8mg/ml INJ SDV IV PRN (23:05)
[2017-06-30 05:00] VITALS: BP 102/65
[2017-06-30] MEDS: MORPHINE SULFATE 8mg/ml INJ SDV IV PRN ×2 (05:37→20:13)
[2017-06-30] MEDS: metroNIDAZOLE 500MG/100ML 100 ML IV SCH (05:37)
[2017-06-30 08:24] VITALS: BP 116/66
[2017-06-30 09:00] VITALS: BP 116/66
[2017-06-30] MEDS ORDERED: LORazepam 2MG/ML-1ML VIAL IV ONE (09:00)
[2017-06-30] MEDS: cefTRIAXone 1GM/10ml IVPUSH 10 ML IV SCH (09:08)
[2017-06-30] MEDS: SPIRONOLACTONE 25 MG TAB PO SCH (09:09)
[2017-06-30] MEDS: LACTULOSE 20Gm/30ML SOLN PO SCH ×3 (09:13→21:19)
[2017-06-30 09:36] LABS: Urine Bacteria NONE SEEN /hpf (None Seen); Urine Blood Negative /uL (Negative); Urine Mucus FEW (None Seen); Urine Specific Gravity 1.019 (1.001-1.035); Urine WBC 1 /hpf (0 - 5)
[2017-06-30] MEDS: FAMOTIDINE 20 MG TAB PO SCH ×2 (10:23→21:19)
[2017-06-30] MEDS: FUROSEMIDE 40 MG TAB PO SCH (10:23)
[2017-06-30 13:00] VITALS: BP 110/79
[2017-06-30] MEDS: metroNIDAZOLE 500 MG TAB PO SCH ×2 (13:43→21:19)
[2017-06-30 17:00] VITALS: BP 107/77
[2017-06-30 22:00] VITALS: BP 119/67
[2017-07-01 05:24] VITALS: BP 105/67
[2017-07-01] MEDS: metroNIDAZOLE 500 MG TAB PO SCH (06:19)
[2017-07-01 09:00] VITALS: BP_SYST 133; BP_SYST 94; BP_DIAS 49; BP_DIAS 68
[2017-07-01] MEDS: LACTULOSE 20Gm/30ML SOLN PO SCH (09:34)
[2017-07-01] MEDS: FAMOTIDINE 20 MG TAB PO SCH (09:35)
[2017-07-01] MEDS: cefTRIAXone 1GM/10ml IVPUSH 10 ML IV SCH (09:35)
[2017-07-01] MEDS: FUROSEMIDE 40 MG TAB PO SCH (09:36)
[2017-07-01] MEDS: SPIRONOLACTONE 25 MG TAB PO SCH (09:41)
[2017-07-01] MEDS: MORPHINE SULFATE 8mg/ml INJ SDV IV PRN (10:52)
== END 2017-07-01 12:04 | disposition home or self-care (01) | DRG 280 ==
LOC: ER 11:44 → OVERFLOW 11:45 → WEST WING 20:11
PROVIDERS: ADMIT Internal Medicine; ATTEND Internal Medicine
PROC: 0W9G3ZZ Drainage of Peritoneal Cavity, Percutaneous Approach (ICD-10-PCS; principal; 2017-06-30)
DX: K70.31 Alcoholic cirrhosis of liver with ascites (principal); K76.6 Portal hypertension; K80.20 Calculus of gallbladder without cholecystitis without obstruction; Z88.0 Allergy status to penicillin; Z79.899 Other long term (current) drug therapy
CPT/HCPCS: 10022; 36415; 71045; 76700; 76942; 80053; 81001; 83690; 85025; 85610; 85730; 94761; 96374; 96375; J2270; J2405; J3490

== ENCOUNTER 2017-07-27 14:22 | Emergency (ER) | payer OTHER ==
[~2017-07-27] VITALS: Ht 160 cm; Wt 61.2 kg
[~2017-07-27 14:22] MED LIST changes: -FERR-20 PO
[2017-07-27 15:24] LABS: Basophils # (auto) 0 uL; Basophils % (auto) 0.4 % (0.0-2.0); Eosinophils # (auto) 0.1 uL; Eosinophils % (auto) 1.5 % (0.0-7.0); Hematocrit 39.6 % (36.0-46.0); Hemoglobin 13.6 g/dL (12.2-16.2); Lymphocytes # (auto) 1.7 uL; Lymphocytes % (auto) 27.2 % (10.0-50.0); Mean Corpuscular Hemoglobin 33.7 pg (28.0-32.0); Mean Corpuscular Hgb Conc. 34.4 g/dL (32.0-36.0); Monocytes # (auto) 0.5 uL; Monocytes % (auto) 8.5 % (0.0-12.0); Neutrophils % (auto) 62.4 % (37.0-80.0); Nucleated Red Blood Cells % 0.1 %; Platelet Count (auto) 133 10^3/uL (140-450); Red Blood Cells 4.04 10^6/uL (4.0-5.20); Red Cell Distribution Width 15.1 % (11.8-14.3); White Blood Cell 6.4 10^3/uL (4.4-10.8)
[2017-07-27 15:26] LABS: Urine Bacteria FEW /hpf (None Seen); Urine Blood 2+ /uL (Negative); Urine Mucus FEW (None Seen); Urine Specific Gravity 1.024 (1.001-1.035); Urine WBC 290 /hpf (0 - 5)
[2017-07-27 15:39] LABS: Calcium 8.8 mg/dL (8.5-10.1); Potassium 3.8 mmol/L (3.5-5.1)
[2017-07-27 15:42] LABS: Total Protein 7.5 g/dL (6.4-8.2)
[2017-07-27 17:10] VITALS: BP 110/60
== END 2017-07-27 17:15 | disposition home or self-care (01) ==
LOC: ER 14:28
DX: N39.0 Urinary tract infection, site not specified (principal); F12.10 Cannabis abuse, uncomplicated; Z88.0 Allergy status to penicillin
CPT/HCPCS: 36415; 80053; 81001; 85025

== ENCOUNTER 2017-08-16 09:37 | Inpatient (IN) | payer OTHER ==
[~2017-08-16] VITALS: Ht 160 cm; Wt 59.6 kg
[2017-08-16 10:10] LABS: Basophils # (auto) 0 uL; Basophils % (auto) 0.4 % (0.0-2.0); Eosinophils # (auto) 0.1 uL; Eosinophils % (auto) 1.5 % (0.0-7.0); Hematocrit 41.2 % (36.0-46.0); Hemoglobin 13.8 g/dL (12.2-16.2); Lymphocytes # (auto) 1.7 uL; Lymphocytes % (auto) 33.3 % (10.0-50.0); Mean Corpuscular Hemoglobin 32.3 pg (28.0-32.0); Mean Corpuscular Hgb Conc. 33.6 g/dL (32.0-36.0); Mean Corpuscular Volume 96.2 fL (80.0-100.0); Monocytes # (auto) 0.3 uL; Monocytes % (auto) 6.3 % (0.0-12.0); Neutrophils # (auto) 2.9 uL; Neutrophils % (auto) 58.5 % (37.0-80.0); Nucleated Red Blood Cells % 0.1 %; Platelet Count (auto) 158 10^3/uL (140-450); Red Blood Cells 4.29 10^6/uL (4.0-5.20); Red Cell Distribution Width 14.9 % (11.8-14.3)
[2017-08-16 10:45] LABS: Albumin 3.1 g/dL (3.4-5.0); BUN/Creatinine Ratio 15.1; Bilirubin, Total 0.9 mg/dL (0.2-1.0); Calcium 8.5 mg/dL (8.5-10.1); Potassium 3.4 mmol/L (3.5-5.1); Total Protein 7.2 g/dL (6.4-8.2)
[2017-08-16] MEDS ORDERED: SODIUM CHLORIDE 0.9% 1,000 ML IV ONE (15:15)
[2017-08-16 15:35] LABS: Magnesium 2.2 mg/dL (1.6-2.6)
[2017-08-16 15:53] LABS: Urine Bacteria MANY /hpf (None Seen); Urine Blood TRACE /uL (Negative); Urine Mucus FEW (None Seen); Urine Specific Gravity 1.033 (1.001-1.035); Urine WBC 20 /hpf (0 - 5)
[2017-08-16] MEDS ORDERED: NITROGLYCERIN 0.4 MG SL TAB SL PRN (17:00)
[2017-08-16] MEDS ORDERED: LORazepam 0.5 MG TAB PO PRN (17:00)
[2017-08-16] MEDS ORDERED: cefTRIAXone 1GM/10ml IVPUSH 10 ML IV ONE ×2 (17:00)
[2017-08-16] MEDS ORDERED: MORPHINE SULF INJ 2 MG/ML SYRINGE 1ML IV PRN ×2 (17:00)
[2017-08-16 17:46] LABS: Amylase 123 U/L (25-115); Lipase 393 U/L (73-393)
[2017-08-16] MEDS: MORPHINE SULF INJ 2 MG/ML SYRINGE 1ML IV PRN ×2 (18:11→19:01)
[2017-08-16] MEDS: PROMETHAZINE HCL 25 MG/ML 1ML IV PRN ×2 (18:11→19:01)
[2017-08-16] MEDS: FUROSEMIDE 40 MG TAB PO SCH (18:22)
[2017-08-16 21:50] VITALS: BP 97/59
[2017-08-16 22:00] VITALS: BP 97/59
[2017-08-16] MEDS: TEMAZEPAM 15 MG CAP PO PRN (22:44)
[2017-08-17 05:30] VITALS: BP 101/61
[2017-08-17] MEDS: FUROSEMIDE 40 MG TAB PO SCH ×2 (05:40→17:40)
[2017-08-17 06:56] LABS: Potassium 3.3 mmol/L (3.5-5.1)
[2017-08-17 07:03] LABS: Albumin 2.7 g/dL (3.4-5.0); BUN/Creatinine Ratio 17.1; Calcium 8.4 mg/dL (8.5-10.1)
[2017-08-17 07:05] LABS: Bilirubin, Total 0.6 mg/dL (0.2-1.0); Total Protein 6.5 g/dL (6.4-8.2)
[2017-08-17 07:09] LABS: Basophils # (auto) 0 uL; Basophils % (auto) 0.5 % (0.0-2.0); Eosinophils # (auto) 0.1 uL; Eosinophils % (auto) 2.4 % (0.0-7.0); Hematocrit 37.8 % (36.0-46.0); Hemoglobin 12.9 g/dL (12.2-16.2); Lymphocytes # (auto) 1.9 uL; Lymphocytes % (auto) 35.7 % (10.0-50.0); Mean Corpuscular Hemoglobin 32.7 pg (28.0-32.0); Mean Corpuscular Hgb Conc. 34.2 g/dL (32.0-36.0); Mean Corpuscular Volume 95.5 fL (80.0-100.0); Monocytes # (auto) 0.5 uL; Monocytes % (auto) 9.2 % (0.0-12.0); Neutrophils # (auto) 2.8 uL; Neutrophils % (auto) 52.2 % (37.0-80.0); Nucleated Red Blood Cells % 0.1 %; Platelet Count (auto) 136 10^3/uL (140-450); Red Blood Cells 3.96 10^6/uL (4.0-5.20); Red Cell Distribution Width 14.8 % (11.8-14.3); White Blood Cell 5.4 10^3/uL (4.4-10.8)
[2017-08-17 09:00] VITALS: BP 97/59
[2017-08-17] MEDS ORDERED: cefTRIAXone 1GM/10ml IVPUSH 10 ML IV SCH (09:00)
[2017-08-17] MEDS: LACTULOSE 20Gm/30ML SOLN PO SCH (10:00)
[2017-08-17] MEDS: SPIRONOLACTONE 25 MG TAB PO SCH (10:01)
[2017-08-17] MEDS: PANTOPRAZOLE 40 MG TAB PO SCH (10:01)
[2017-08-17] MEDS ORDERED: POTASSIUM CHL 20 Meq TABLET PO ONE (10:30)
[2017-08-17] MEDS ORDERED: ERTAPENEM SOD INJ 1 GM in SODIUM CHL 0.9% 50 ML IV ONE (10:30)
[2017-08-17 11:47] LABS: Basophils # (auto) 0 uL; Basophils % (auto) 0.4 % (0.0-2.0); Eosinophils # (auto) 0.1 uL; Eosinophils % (auto) 2.3 % (0.0-7.0); Hematocrit 38.2 % (36.0-46.0); Hemoglobin 12.8 g/dL (12.2-16.2); Lymphocytes # (auto) 1.9 uL; Lymphocytes % (auto) 34.2 % (10.0-50.0); Mean Corpuscular Hemoglobin 32.1 pg (28.0-32.0); Mean Corpuscular Hgb Conc. 33.6 g/dL (32.0-36.0); Mean Corpuscular Volume 95.6 fL (80.0-100.0); Monocytes # (auto) 0.6 uL; Monocytes % (auto) 9.9 % (0.0-12.0); Neutrophils % (auto) 53.2 % (37.0-80.0); Nucleated Red Blood Cells % 0.1 %; Platelet Count (auto) 136 10^3/uL (140-450); Red Cell Distribution Width 14.7 % (11.8-14.3); White Blood Cell 5.6 10^3/uL (4.4-10.8)
[2017-08-17 12:06] LABS: INR 1.07 (0.9-1.15); Prothrombin Time 11.4 sec (9.27-12.13)
[2017-08-17 13:00] VITALS: BP 103/59
[2017-08-17] MEDS: HYDROcodone-ACET 5/325MG TAB PO PRN ×2 (16:15→22:09)
[2017-08-17 17:00] VITALS: BP 83/47
[2017-08-17 22:00] VITALS: BP 99/58
[2017-08-17] MEDS: TEMAZEPAM 15 MG CAP PO PRN (22:09)
[2017-08-18 05:18] VITALS: BP 91/55
[2017-08-18] MEDS: FUROSEMIDE 40 MG TAB PO SCH ×2 (05:54→17:58)
[2017-08-18 06:30] LABS: Calcium 8.3 mg/dL (8.5-10.1); Potassium 3.8 mmol/L (3.5-5.1)
[2017-08-18 06:32] LABS: BUN/Creatinine Ratio 22.7
[2017-08-18 09:28] VITALS: BP 90/57
[2017-08-18] MEDS: PANTOPRAZOLE 40 MG TAB PO SCH (09:57)
[2017-08-18] MEDS: LACTULOSE 20Gm/30ML SOLN PO SCH (10:00)
[2017-08-18] MEDS: SPIRONOLACTONE 25 MG TAB PO SCH (10:00)
[2017-08-18] MEDS: HYDROcodone-ACET 5/325MG TAB PO PRN ×2 (10:07→18:44)
[2017-08-18] MEDS: ERTAPENEM SOD INJ 1 GM in SODIUM CHL 0.9% 50 ML IV SCH (10:09)
[2017-08-18 13:00] VITALS: BP 108/72
[2017-08-18 17:00] VITALS: BP 98/62
[2017-08-18 22:00] VITALS: BP 108/68
[2017-08-18] MEDS: TEMAZEPAM 15 MG CAP PO PRN (22:21)
[2017-08-19] VITALS (7 sets, daily range): BP systolic 94–108; BP diastolic 51–68
[2017-08-19] MEDS: HYDROcodone-ACET 5/325MG TAB PO PRN ×4 (00:32→22:56)
[2017-08-19] MEDS: FUROSEMIDE 40 MG TAB PO SCH ×2 (05:54→17:21)
[2017-08-19] MEDS: ERTAPENEM SOD INJ 1 GM in SODIUM CHL 0.9% 50 ML IV SCH (09:45)
[2017-08-19] MEDS: PANTOPRAZOLE 40 MG TAB PO SCH (09:45)
[2017-08-19] MEDS: SPIRONOLACTONE 25 MG TAB PO SCH (09:46)
[2017-08-19] MEDS: LACTULOSE 20Gm/30ML SOLN PO SCH (09:46)
[2017-08-19] MEDS: TEMAZEPAM 15 MG CAP PO PRN (22:57)
[2017-08-20] VITALS (7 sets, daily range): BP systolic 99–104; BP diastolic 57–74
[2017-08-20 06:13] LABS: Basophils # (auto) 0 uL; Basophils % (auto) 0.6 % (0.0-2.0); Eosinophils # (auto) 0.2 uL; Eosinophils % (auto) 3.3 % (0.0-7.0); Hematocrit 39.6 % (36.0-46.0); Hemoglobin 13.8 g/dL (12.2-16.2); Lymphocytes # (auto) 1.9 uL; Lymphocytes % (auto) 33.5 % (10.0-50.0); Mean Corpuscular Hemoglobin 33.1 pg (28.0-32.0); Mean Corpuscular Hgb Conc. 34.9 g/dL (32.0-36.0); Monocytes # (auto) 0.5 uL; Monocytes % (auto) 9.8 % (0.0-12.0); Neutrophils % (auto) 52.8 % (37.0-80.0); Nucleated Red Blood Cells % 0.2 %; Platelet Count (auto) 141 10^3/uL (140-450); Red Blood Cells 4.17 10^6/uL (4.0-5.20); Red Cell Distribution Width 14.5 % (11.8-14.3); White Blood Cell 5.6 10^3/uL (4.4-10.8)
[2017-08-20] MEDS: FUROSEMIDE 40 MG TAB PO SCH ×2 (06:17→18:11)
[2017-08-20] MEDS: HYDROcodone-ACET 5/325MG TAB PO PRN ×2 (06:19→18:12)
[2017-08-20 06:32] LABS: Calcium 8.8 mg/dL (8.5-10.1); Potassium 3.3 mmol/L (3.5-5.1)
[2017-08-20 06:37] LABS: BUN/Creatinine Ratio 18.2
[2017-08-20] MEDS ORDERED: POTASSIUM CHL 20 Meq TABLET PO ONE (09:00)
[2017-08-20] MEDS: ERTAPENEM SOD INJ 1 GM in SODIUM CHL 0.9% 50 ML IV SCH (09:43)
[2017-08-20] MEDS: SPIRONOLACTONE 25 MG TAB PO SCH (09:44)
[2017-08-20] MEDS: PANTOPRAZOLE 40 MG TAB PO SCH (09:44)
[2017-08-20] MEDS: LACTULOSE 20Gm/30ML SOLN PO SCH (10:00)
[2017-08-20] MEDS: TEMAZEPAM 15 MG CAP PO PRN (22:18)
[2017-08-21] MEDS: HYDROcodone-ACET 5/325MG TAB PO PRN (00:13)
[2017-08-21 05:46] VITALS: BP 95/60
[2017-08-21] MEDS: FUROSEMIDE 40 MG TAB PO SCH (06:00)
[2017-08-21 06:40] LABS: Basophils # (auto) 0 uL; Basophils % (auto) 0.9 % (0.0-2.0); Eosinophils # (auto) 0.2 uL; Eosinophils % (auto) 3.2 % (0.0-7.0); Hematocrit 41.2 % (36.0-46.0); Hemoglobin 14.2 g/dL (12.2-16.2); Lymphocytes # (auto) 1.9 uL; Lymphocytes % (auto) 35.2 % (10.0-50.0); Mean Corpuscular Hemoglobin 32.7 pg (28.0-32.0); Mean Corpuscular Hgb Conc. 34.4 g/dL (32.0-36.0); Mean Corpuscular Volume 94.9 fL (80.0-100.0); Monocytes # (auto) 0.6 uL; Monocytes % (auto) 10.3 % (0.0-12.0); Neutrophils # (auto) 2.7 uL; Neutrophils % (auto) 50.4 % (37.0-80.0); Nucleated Red Blood Cells % 0.1 %; Platelet Count (auto) 153 10^3/uL (140-450); Red Blood Cells 4.34 10^6/uL (4.0-5.20); Red Cell Distribution Width 14.7 % (11.8-14.3); White Blood Cell 5.4 10^3/uL (4.4-10.8)
[2017-08-21 06:54] LABS: Calcium 8.7 mg/dL (8.5-10.1); Potassium 4.1 mmol/L (3.5-5.1)
[2017-08-21 06:56] LABS: BUN/Creatinine Ratio 20.7
[2017-08-21 08:00] VITALS: BP 108/73
[2017-08-21] MEDS: PANTOPRAZOLE 40 MG TAB PO SCH (09:52)
[2017-08-21] MEDS: ERTAPENEM SOD INJ 1 GM in SODIUM CHL 0.9% 50 ML IV SCH (09:52)
[2017-08-21] MEDS: SPIRONOLACTONE 25 MG TAB PO SCH (09:53)
[2017-08-21] MEDS: LACTULOSE 20Gm/30ML SOLN PO SCH (09:53)
[2017-08-21 12:00] VITALS: BP 115/74
== END 2017-08-21 15:24 | disposition home or self-care (01) | DRG 280 ==
LOC: ER 09:37 → TELE 09:38 → TELE-CENTR 21:57 → CENTRAL 08-17 12:13
PROVIDERS: ADMIT Internal Medicine; ATTEND Internal Medicine
PROC: 0W9G3ZZ Drainage of Peritoneal Cavity, Percutaneous Approach (ICD-10-PCS; principal; 2017-08-17)
DX: K70.31 Alcoholic cirrhosis of liver with ascites (principal); N18.6 End stage renal disease; K76.6 Portal hypertension; E44.0 Moderate protein-calorie malnutrition; I12.0 Hypertensive chronic kidney disease with stage 5 chronic kidney disease or end stage renal disease; I85.10 Secondary esophageal varices without bleeding; E87.6 Hypokalemia; K80.20 Calculus of gallbladder without cholecystitis without obstruction; N39.0 Urinary tract infection, site not specified; B96.20 Unspecified Escherichia coli [E. coli] as the cause of diseases classified elsewhere; F12.90 Cannabis use, unspecified, uncomplicated; F41.9 Anxiety disorder, unspecified; Z16.12 Extended spectrum beta lactamase (ESBL) resistance; F10.20 Alcohol dependence, uncomplicated; R73.9 Hyperglycemia, unspecified; Z85.6 Personal history of leukemia; Z88.0 Allergy status to penicillin; Z68.23 Body mass index [BMI] 23.0-23.9, adult
CPT/HCPCS: 10022; 36415; 71046; 74176; 76942; 80048; 80053; 81001; 82150; 83690; 83735; 84702; 85025; 85610; 87081; 87086; 87088; 87186; 93005; 96361; 96374; 96375; J1335

== ENCOUNTER 2017-09-07 09:29 | Emergency (ER) | payer OTHER ==
[~2017-09-07] VITALS: Ht 160 cm; Wt 68.9 kg
[2017-09-07] MEDS: NALBUPHINE HCL 10 MG/1ml INJECTION IV ONE (11:00)
[2017-09-07] MEDS: ONDANSETRON HCL 4 MG/2 ML VIAL IV ONE (11:00)
[2017-09-07 11:21] LABS: Albumin 2.4 g/dL (3.4-5.0); Calcium 7.8 mg/dL (8.5-10.1); Potassium 3.7 mmol/L (3.5-5.1)
[2017-09-07 11:23] LABS: INR 1.03 (0.9-1.15); Partial Thromboplastin Time 30.3 sec (23.78-33.04)
[2017-09-07 11:29] LABS: BUN/Creatinine Ratio 22.7; Bilirubin, Total 0.6 mg/dL (0.2-1.0)
[2017-09-07 11:56] LABS: Basophils # (auto) 0 uL; Basophils % (auto) 0.4 % (0.0-2.0); Eosinophils # (auto) 0.1 uL; Eosinophils % (auto) 2.2 % (0.0-7.0); Hematocrit 36.8 % (36.0-46.0); Hemoglobin 12.7 g/dL (12.2-16.2); Lymphocytes # (auto) 1.8 uL; Lymphocytes % (auto) 32.2 % (10.0-50.0); Mean Corpuscular Hemoglobin 33.2 pg (28.0-32.0); Mean Corpuscular Hgb Conc. 34.4 g/dL (32.0-36.0); Mean Corpuscular Volume 96.4 fL (80.0-100.0); Monocytes # (auto) 0.4 uL; Monocytes % (auto) 7.9 % (0.0-12.0); Neutrophils # (auto) 3.1 uL; Neutrophils % (auto) 57.3 % (37.0-80.0); Nucleated Red Blood Cells % 0.1 %; Red Blood Cells 3.81 10^6/uL (4.0-5.20); White Blood Cell 5.5 10^3/uL (4.4-10.8)
[2017-09-07 11:59] LABS: Platelet Count (auto) 127 10^3/uL (140-450)
[2017-09-07] MEDS: LIDOCAINE W/ EPINEPHRINE 1% 20ML VIAL ONE (12:01)
[2017-09-07] MEDS: LIDOCAINE 2% (LOCAL ANESTH.) PF 5ml SDV ONE (12:01)
[2017-09-07 13:27] LABS: Urine Bacteria NONE SEEN /hpf (None Seen); Urine Blood Negative /uL (Negative); Urine Specific Gravity 1.007 (1.001-1.035); Urine WBC 6 /hpf (0 - 5)
[2017-09-07 14:48] VITALS: BP 106/74
== END 2017-09-07 13:49 | disposition home or self-care (01) ==
LOC: ER 09:29
DX: R18.8 Other ascites (principal); Z79.899 Other long term (current) drug therapy
CPT/HCPCS: 36415; 49083; 74176; 80053; 81001; 83605; 85025; 85610; 85730; 87040; 96374; 96375; 99285; J2300; J2405

== ENCOUNTER 2017-10-05 06:03 | Emergency (ER) | payer OTHER ==
[~2017-10-05] VITALS: Ht 160 cm; Wt 68.0 kg
[2017-10-05 08:04] LABS: Basophils # (auto) 0 uL; Basophils % (auto) 0.5 % (0.0-2.0); Eosinophils # (auto) 0.2 uL; Eosinophils % (auto) 3.1 % (0.0-7.0); Hematocrit 41.2 % (36.0-46.0); Hemoglobin 13.7 g/dL (12.2-16.2); Lymphocytes # (auto) 1.7 uL; Lymphocytes % (auto) 27.5 % (10.0-50.0); Mean Corpuscular Hemoglobin 32.4 pg (28.0-32.0); Mean Corpuscular Hgb Conc. 33.1 g/dL (32.0-36.0); Mean Corpuscular Volume 97.9 fL (80.0-100.0); Monocytes # (auto) 0.7 uL; Monocytes % (auto) 10.3 % (0.0-12.0); Neutrophils # (auto) 3.7 uL; Neutrophils % (auto) 58.6 % (37.0-80.0); Platelet Count (auto) 141 10^3/uL (140-450); Red Blood Cells 4.21 10^6/uL (4.0-5.20); Red Cell Distribution Width 15.7 % (11.8-14.3); White Blood Cell 6.4 10^3/uL (4.4-10.8)
[2017-10-05 08:19] LABS: INR 1.02 (0.9-1.15); Partial Thromboplastin Time 31.1 sec (23.78-33.04); Prothrombin Time 10.9 sec (9.27-12.13)
[2017-10-05 08:25] LABS: Albumin 2.8 g/dL (3.4-5.0); BUN/Creatinine Ratio 25.5; Calcium 8.5 mg/dL (8.5-10.1); Potassium 4.1 mmol/L (3.5-5.1)
[2017-10-05 08:28] LABS: Bilirubin, Total 0.6 mg/dL (0.2-1.0)
[2017-10-05] MEDS ORDERED: ONDANSETRON HCL 4 MG/2 ML VIAL IV ONE (11:45)
[2017-10-05] MEDS ORDERED: MORPHINE SULFATE 4 MG/ML SYR/VIAL IV ONE (11:45)
[2017-10-05] MEDS ORDERED: LIDOCAINE 1% HCL (LOCAL ANESTH.) INJ 20ML MDV IJ ONE (12:15)
[2017-10-05 12:18] LABS: Urine Bacteria FEW /hpf (None Seen); Urine Blood Negative /uL (Negative); Urine Mucus FEW (None Seen); Urine Specific Gravity 1.012 (1.001-1.035); Urine WBC <1 /hpf (0 - 5)
[2017-10-05 12:49] VITALS: BP 110/67
== END 2017-10-05 13:51 | disposition home or self-care (01) ==
LOC: ER 06:03
DX: K70.31 Alcoholic cirrhosis of liver with ascites (principal); R42 Dizziness and giddiness; Z88.0 Allergy status to penicillin; Z79.899 Other long term (current) drug therapy
CPT/HCPCS: 36415; 49083; 76705; 80053; 81001; 85025; 85610; 85730; 96374; 96375; 99285; C1729; J2001; J2270; J2405; J7030; 10022; 76942

== ENCOUNTER 2017-11-02 06:33 | Emergency (ER) | payer OTHER ==
[~2017-11-02] VITALS: Ht 160 cm; Wt 67.6 kg
[2017-11-02 09:01] LABS: INR 1.06 (0.9-1.15); Partial Thromboplastin Time 31.5 sec (23.78-33.04); Prothrombin Time 11.3 sec (9.27-12.13)
[2017-11-02] MEDS ORDERED: HYDROcodone-ACET 10/325MG TAB PO ONE (11:00)
[2017-11-02] MEDS ORDERED: ONDANSETRON ODT 4 MG TAB PO ONE (11:00)
[2017-11-02 11:18] VITALS: BP 110/50
== END 2017-11-02 12:07 | disposition home or self-care (01) ==
LOC: ER 06:39
DX: K70.31 Alcoholic cirrhosis of liver with ascites (principal); F12.10 Cannabis abuse, uncomplicated; F41.9 Anxiety disorder, unspecified; Z88.0 Allergy status to penicillin
CPT/HCPCS: 10022; 36415; 49083; 76705; 76942; 85610; 85730; 99285; C1729; Q0162

== ENCOUNTER 2017-12-27 08:58 | Inpatient (IN) | payer OTHER ==
[~2017-12-27] VITALS: Ht 160 cm; Wt 67.0 kg
[~2017-12-27 08:58] MED LIST changes: -SPIR100T21 PO; +SPIR100T4 PO
[2017-12-27 09:48] LABS: Basophils # (auto) 0.2 uL; Basophils % (auto) 3.3 % (0.0-2.0); Eosinophils # (auto) 0.1 uL; Hematocrit 42.4 % (36.0-46.0); Hemoglobin 14.3 g/dL (12.2-16.2); Lymphocytes # (auto) 1.4 uL; Lymphocytes % (auto) 25.5 % (10.0-50.0); Mean Corpuscular Hgb Conc. 33.8 g/dL (32.0-36.0); Mean Corpuscular Volume 94.8 fL (80.0-100.0); Monocytes # (auto) 0.4 uL; Monocytes % (auto) 6.7 % (0.0-12.0); Neutrophils # (auto) 3.5 uL; Neutrophils % (auto) 62.5 % (37.0-80.0); Nucleated Red Blood Cells % 0.1 %; Platelet Count (auto) 121 10^3/uL (140-450); Red Blood Cells 4.48 10^6/uL (4.0-5.20); Red Cell Distribution Width 14.9 % (11.8-14.3); White Blood Cell 5.5 10^3/uL (4.4-10.8)
[2017-12-27] MEDS ORDERED: SODIUM CHLORIDE 0.9% 1,000 ML IV ONE (10:04)
[2017-12-27 10:11] LABS: Albumin 3.3 g/dL (3.4-5.0); Calcium 8.5 mg/dL (8.5-10.1); Potassium 3.9 mmol/L (3.5-5.1)
[2017-12-27 10:15] LABS: Bilirubin, Total 0.9 mg/dL (0.2-1.0); Total Protein 7.9 g/dL (6.4-8.2)
[2017-12-27] MEDS ORDERED: METOCLOPRAMIDE HCL 5MG/ml INJ 2ml VIAL IV ONE (10:15)
[2017-12-27 12:04] LABS: Urine Bacteria FEW /hpf (None Seen); Urine Blood Negative /uL (Negative); Urine Mucus FEW (None Seen); Urine Specific Gravity 1.024 (1.001-1.035); Urine WBC 5 /hpf (0 - 5)
[2017-12-27] MEDS ORDERED: MORPHINE SULFATE 4 MG/ML SYR/VIAL IV PRN ×2 (15:15)
[2017-12-27] MEDS ORDERED: cefTRIAXone 1GM/50ML D5W 50 ML IV ONE (15:15)
[2017-12-27] MEDS ORDERED: NITROGLYCERIN 0.4 MG SL TAB SL PRN (15:15)
[2017-12-27] MEDS: LACTULOSE 20Gm/30ML SOLN PO SCH (16:30)
[2017-12-27] MEDS ORDERED: ONDANSETRON HCL 4 MG/2 ML VIAL ONE (16:31)
[2017-12-27] MEDS: MORPHINE SULFATE 4 MG/ML SYR/VIAL IV PRN ×2 (16:43→22:51)
[2017-12-27] MEDS ORDERED: ONDANSETRON HCL 4 MG/2 ML VIAL IV PRN (16:45)
[2017-12-27] MEDS ORDERED: SODIUM CHLORIDE 0.9% 1,000 ML IV SCH (16:45)
[2017-12-27 17:57] LABS: INR 1.05 (0.9-1.15); Partial Thromboplastin Time 30.8 sec (23.78-33.04); Prothrombin Time 11.2 sec (9.27-12.13)
[2017-12-27] MEDS: FUROSEMIDE 40 MG TAB PO SCH (18:20)
[2017-12-27] MEDS: metroNIDAZOLE 500MG/100ML 100 ML IV SCH ×2 (18:20→23:55)
[2017-12-27 21:00] VITALS: BP 108/69
[2017-12-27 22:00] VITALS: BP 108/69
[2017-12-27] MEDS ORDERED: HYDR50TA69 PO (23:37)
[2017-12-28] MEDS ORDERED: TEMAZEPAM 15 MG CAP PO ONE (03:00)
[2017-12-28 05:00] VITALS: BP 117/73
[2017-12-28] MEDS: metroNIDAZOLE 500MG/100ML 100 ML IV SCH (05:52)
[2017-12-28] MEDS: FUROSEMIDE 40 MG TAB PO SCH ×2 (05:58→18:00)
[2017-12-28 08:00] VITALS: BP 105/56
[2017-12-28 08:51] VITALS: BP 105/56
[2017-12-28] MEDS: SPIRONOLACTONE 25 MG TAB PO SCH (09:09)
[2017-12-28] MEDS: PANTOPRAZOLE 40 MG TAB PO SCH (09:09)
[2017-12-28] MEDS: LACTULOSE 20Gm/30ML SOLN PO SCH (09:09)
[2017-12-28] MEDS: cefTRIAXone 1GM/50ML D5W 50 ML IV SCH (09:09)
[2017-12-28] MEDS ORDERED: ALBUMIN 25% 50 ML IV ONE (10:30)
[2017-12-28] MEDS ORDERED: LORazepam 0.5 MG TAB PO PRN (11:00)
[2017-12-28 17:00] VITALS: BP 107/62
[2017-12-28 20:00] VITALS: BP 112/68
[2017-12-28 21:30] VITALS: BP 112/68
[2017-12-29 05:00] VITALS: BP 107/60
[2017-12-29 05:47] LABS: Basophils # (auto) 0 uL; Basophils % (auto) 0.5 % (0.0-2.0); Eosinophils # (auto) 0.1 uL; Eosinophils % (auto) 1.1 % (0.0-7.0); Hematocrit 40.9 % (36.0-46.0); Hemoglobin 14.4 g/dL (12.2-16.2); Lymphocytes # (auto) 1.5 uL; Lymphocytes % (auto) 28.1 % (10.0-50.0); Mean Corpuscular Hemoglobin 32.8 pg (28.0-32.0); Mean Corpuscular Hgb Conc. 35.1 g/dL (32.0-36.0); Mean Corpuscular Volume 93.4 fL (80.0-100.0); Monocytes # (auto) 0.4 uL; Monocytes % (auto) 7.8 % (0.0-12.0); Neutrophils # (auto) 3.2 uL; Neutrophils % (auto) 62.5 % (37.0-80.0); Nucleated Red Blood Cells % 0.1 %; Platelet Count (auto) 95 10^3/uL (140-450); Red Blood Cells 4.38 10^6/uL (4.0-5.20); Red Cell Distribution Width 14.3 % (11.8-14.3); White Blood Cell 5.2 10^3/uL (4.4-10.8)
[2017-12-29] MEDS: FUROSEMIDE 40 MG TAB PO SCH (05:58)
[2017-12-29 08:00] VITALS: BP 107/60
[2017-12-29 08:22] LABS: BUN/Creatinine Ratio 21.5; Calcium 9.3 mg/dL (8.5-10.1); Potassium 3.7 mmol/L (3.5-5.1)
[2017-12-29 09:00] VITALS: BP 106/71
[2017-12-29] MEDS: SPIRONOLACTONE 25 MG TAB PO SCH (09:06)
[2017-12-29] MEDS: PANTOPRAZOLE 40 MG TAB PO SCH (09:06)
[2017-12-29] MEDS: LACTULOSE 20Gm/30ML SOLN PO SCH (09:06)
[2017-12-29] MEDS: cefTRIAXone 1GM/50ML D5W 50 ML IV SCH (09:06)
[2017-12-29 13:00] VITALS: BP 118/71
[2017-12-29 13:58] VITALS: BP 107/60
== END 2017-12-29 14:25 | disposition home or self-care (01) | DRG 280 ==
LOC: ER 09:00 → TELE 09:01 → TELE-CENTR 20:15 → CENTRAL 12-28 20:50
PROVIDERS: ADMIT Internal Medicine; ATTEND Internal Medicine
PROC: 0W9G3ZZ Drainage of Peritoneal Cavity, Percutaneous Approach (ICD-10-PCS; principal; 2017-12-28)
DX: K70.31 Alcoholic cirrhosis of liver with ascites (principal); D69.6 Thrombocytopenia, unspecified; E87.70 Fluid overload, unspecified; N39.0 Urinary tract infection, site not specified; R00.1 Bradycardia, unspecified; K80.20 Calculus of gallbladder without cholecystitis without obstruction; R14.0 Abdominal distension (gaseous); K57.90 Diverticulosis of intestine, part unspecified, without perforation or abscess without bleeding; F12.90 Cannabis use, unspecified, uncomplicated; F41.9 Anxiety disorder, unspecified; Z80.6 Family history of leukemia; Z88.0 Allergy status to penicillin
CPT/HCPCS: 10022; 36415; 74176; 76700; 80048; 80053; 81001; 81025; 82140; 83690; 83735; 85025; 85610; 85730; 87086; 96361; 96374; 96375; J0696; J2405; J3490

== ENCOUNTER → 2018-07-23 | Emergency (ER) | payer OTHER ==
[~2018-07-23] VITALS: Ht 160 cm; Wt 68.0 kg
[~2018-07-23] MED LIST changes: +HYDR50TA69 PO
[2018-07-23 14:15] VITALS: BP 155/53
== END | disposition home or self-care (01) ==
LOC: EDUNIT# 13:57 → EDBD 14:13 → ER 14:13
DX: R10.84 Generalized abdominal pain (principal); Z88.0 Allergy status to penicillin; Z79.899 Other long term (current) drug therapy; Z53.29 Procedure and treatment not carried out because of patient's decision for other reasons

== ENCOUNTER 2021-05-19 17:33 | Emergency (ER) | payer OTHER ==
[~2021-05-19] VITALS: Ht 160 cm; Wt 79.4 kg
[2021-05-19] MEDS ORDERED: PROCHLORPERAZINE EDISYLATE 5 MG/ML 2ML VIAL IV ONE (19:30)
[2021-05-19] MEDS ORDERED: SODIUM CHLORIDE 0.9% 1,000 ML IVB ONE (19:30)
[2021-05-19] MEDS ORDERED: PANTOPRAZOLE 40 MG/10 ML VIAL INJ IV ONE (19:30)
[2021-05-19 20:27] LABS: Basophils # (auto) 0 10 ^3/uL (0-0.2); Basophils % (auto) 0.5 % (0.0-2.0); Eosinophils # (auto) 0.2 10 ^3/uL (0-0.8); Eosinophils % (auto) 2.6 % (0.0-7.0); Hematocrit 43.9 % (36.0-46.0); Hemoglobin 15.2 g/dL (12.2-16.2); Lymphocytes # (auto) 3.1 10 ^3/uL (0.4-5.4); Lymphocytes % (auto) 40.7 % (10.0-50.0); Mean Corpuscular Hemoglobin 32.6 pg (28.0-32.0); Mean Corpuscular Hgb Conc. 34.6 g/dL (32.0-36.0); Mean Corpuscular Volume 94.4 fL (80.0-100.0); Monocytes # (auto) 0.3 10 ^3/uL (0-1.3); Monocytes % (auto) 4.5 % (0.0-12.0); Neutrophils % (auto) 51.7 % (37.0-80.0); Nucleated Red Blood Cells % 0.2 %; Red Blood Cells 4.66 10^6/uL (4.0-5.20); Red Cell Distribution Width 13.8 % (11.8-14.3); White Blood Cell 7.7 10^3/uL (4.4-10.8)
[2021-05-19 20:33] LABS: Urine Bacteria FEW /hpf (None Seen); Urine Blood Negative /uL (Negative); Urine Hyaline Cast FEW /lpf (0 - 2); Urine Specific Gravity 1.007 (1.001-1.035); Urine WBC 9 /hpf (0 - 5)
[2021-05-19 20:42] LABS: Calcium 9.5 mg/dL (8.5-10.1); Potassium 3.7 mmol/L (3.5-5.1)
[2021-05-19 20:46] LABS: BUN/Creatinine Ratio 18.7; Bilirubin, Total 0.7 mg/dL (0.2-1.0); Total Protein 8.4 g/dL (6.4-8.2)
[2021-05-19] MEDS ORDERED: MORPHINE SULFATE 4 MG/ML SYR/VIAL IV ONE (21:00)
[2021-05-19] MEDS ORDERED: HYDROcodone-ACET 5/325MG TAB PO PRN (22:15)
[2021-05-19] MEDS ORDERED: ONDANSETRON HCL 4 MG/2 ML VIAL IV PRN (22:15)
[2021-05-19] MEDS ORDERED: ACETAMINOPHEN 325 MG TAB PO PRN (22:15)
[2021-05-19] MEDS ORDERED: SODIUM CHLORIDE 0.9% 1,000 ML IV SCH (22:15)
[2021-05-19] MEDS ORDERED: DOCUSATE SOD 100 MG CAP PO PRN (22:15)
[2021-05-19] MEDS ORDERED: cefTRIAXone 1GM/50ML D5W 50 ML IV SCH (22:15)
[2021-05-19] MEDS ORDERED: MORPHINE SULFATE 4 MG/ML SYR/VIAL IV PRN (22:15)
[2021-05-20] MEDS ORDERED: DexAMETHasone 4 MG TAB PO ONE (06:45)
[2021-05-20] MEDS ORDERED: ALBUTEROL SULF 2.5 MG/0.5ML(0.5%) NEB SOLN NEB ONE ×2 (06:45)
[2021-05-20 09:33] VITALS: BP 117/69
[2021-05-20] MEDS ORDERED: ENOXAPARIN SOD 40 MG/0.4 ML SYRINGE SC SCH (10:00)
[2021-05-20] MEDS ORDERED: PANTOPRAZOLE 40 MG TAB PO SCH (10:00)
== END 2021-05-20 09:27 | disposition home or self-care (01) ==
LOC: ER 17:33
DX: K80.20 Calculus of gallbladder without cholecystitis without obstruction (principal); N39.0 Urinary tract infection, site not specified; F12.10 Cannabis abuse, uncomplicated; Z88.0 Allergy status to penicillin; Z20.822 Contact with and (suspected) exposure to COVID-19
CPT/HCPCS: 36415; 74176; 76705; 80053; 81001; 82150; 83690; 85025; 87086; 87426; 94640; 96361; 96365; 96366; 96375; 99285; C9113; J0696; J0780; J2270; J7030; 87040

== ENCOUNTER 2022-05-17 15:36 | Emergency (ER) | payer OTHER ==
[~2022-05-17] VITALS: Ht 160 cm; Wt 82.1 kg
[2022-05-17 16:24] LABS: Basophils # (auto) 0 10 ^3/uL (0-0.2); Basophils % (auto) 0.4 % (0.0-2.0); Eosinophils # (auto) 0.3 10 ^3/uL (0-0.8); Eosinophils % (auto) 4.6 % (0.0-7.0); Hematocrit 41.1 % (36.0-46.0); Hemoglobin 14.3 g/dL (12.2-16.2); Lymphocytes # (auto) 2.4 10 ^3/uL (0.4-5.4); Lymphocytes % (auto) 38.2 % (10.0-50.0); Mean Corpuscular Hemoglobin 33.5 pg (28.0-32.0); Mean Corpuscular Hgb Conc. 34.6 g/dL (32.0-36.0); Mean Corpuscular Volume 96.7 fL (80.0-100.0); Monocytes # (auto) 0.4 10 ^3/uL (0-1.3); Monocytes % (auto) 6.3 % (0.0-12.0); Neutrophils # (auto) 3.2 10 ^3/uL (1.6-8.6); Neutrophils % (auto) 50.5 % (37.0-80.0); Nucleated Red Blood Cells % 0.1 %; Red Blood Cells 4.25 10^6/uL (4.0-5.20); Red Cell Distribution Width 14.3 % (11.8-14.3); White Blood Cell 6.3 10^3/uL (4.4-10.8)
[2022-05-17 16:41] LABS: Albumin 3.4 g/dL (3.4-5.0); BUN/Creatinine Ratio 21.3; Calcium 8.8 mg/dL (8.5-10.1); Potassium 3.9 mmol/L (3.5-5.1)
[2022-05-17] MEDS ORDERED: ONDANSETRON HCL 4 MG/2 ML VIAL IV ONE (16:45)
[2022-05-17] MEDS ORDERED: MORPHINE SULFATE 4 MG/ML SYR/VIAL IV ONE (16:45)
[2022-05-17 16:50] LABS: Bilirubin, Total 0.4 mg/dL (0.2-1.0); Total Protein 7.5 g/dL (6.4-8.2)
[2022-05-17 17:10] LABS: Urine Bacteria NONE SEEN /hpf (None Seen); Urine Blood Negative /uL (Negative); Urine Specific Gravity 1.021 (1.001-1.035); Urine WBC 27 /hpf (0 - 5)
[2022-05-17 17:43] LABS: Magnesium 2.1 mg/dL (1.6-2.6)
[2022-05-17] MEDS ORDERED: NITR-87 PO (17:58)
[2022-05-17] MEDS ORDERED: TRAM-297 PO (17:58)
[2022-05-17] MEDS ORDERED: cefTRIAXone 1GM/50ML D5W 50 ML IV ONE (18:00)
[2022-05-17 21:25] VITALS: BP 114/57
== END 2022-05-17 21:50 | disposition home or self-care (01) ==
LOC: ER 15:36
DX: K80.20 Calculus of gallbladder without cholecystitis without obstruction (principal); N39.0 Urinary tract infection, site not specified; F12.10 Cannabis abuse, uncomplicated; Z88.0 Allergy status to penicillin; Z79.899 Other long term (current) drug therapy
CPT/HCPCS: 36415; 74176; 80053; 81001; 83690; 83735; 85025; 96365; 96375; 99285; J0696; J2270; J2405